=== PATIENT | male | born 1955 | race Caucasian/White ===

== ENCOUNTER 2016-05-20 09:39 | Inpatient (IN) | payer MEDICARE ==
--- NOTE | 2016-05-20 10:03 | ER Document Report ---
ED Medical Screen (RME) - General Stated Complaint: DIFFICULTY BREATHING Time seen by provider: 09:58 Mode of Arrival: Ambulatory Information source: Patient Notes: 60-year-old male presents to ED for shortness of breath. He states he had a LAP -BAND about 5 years ago and saw his LAP-BAND last month. He had both knees replaced 3 years ago. He states he has gained 35 pounds in the last 3 months. He states he has trouble breathing when he bends over. He's been short of breath since they changed his blood pressure medicine. He states he knows he takes blood pressure medicine he takes methadone he states he was diagnosed with diabetes but since she lost a lot of weight they took him off of that medicine. States he drinks every day 3-4 drinks mixed drinks. Does not smoke and does not use recreational drugs. Lumg clear, pulse 112, resp 20 states he can not lay flat as he get extremely sob I have greeted and performed a rapid initial assessment of this patient. A comprehensive ED assessment and evaluation of the patient, analysis of test results and completion of medical decision making process will be conducted by an additional ED providers. TRAVEL OUTSIDE OF THE [place] IN LAST 30 DAYS: No - Related Data Allergies/Adverse Reactions: No Known Allergies Allergy (Verified 03/12/14 11:52) Past Medical History - Past Medical History Cardiac Medical History: Reports: Hx Hypertension Endocrine Medical History: Reports: Hx Diabetes Mellitus Type 2 Past Surgical History: Reports: Hx Abdominal Surgery - EGD; lap band; abd hernia , Hx Orthopedic Surgery - bilat knee - Immunizations Hx Diphtheria, Pertussis, Tetanus Vaccination: Yes Physical Exam - Vital signs Vitals: Temp Pulse Resp BP Pulse Ox 97.6 F 112 H 20 142/89 H 95 05/20/16 09:56 05/20/16 09:56 05/20/16 09:56 05/20/16 09:56 05/20/16 09:56 Course - Vital Signs Vital signs: Temp Pulse Resp BP Pulse Ox 97.6 F 112 H 20 142/89 H 95 05/20/16 09:56 05/20/16 09:56 05/20/16 09:56 05/20/16 09:56 05/20/16 09:56
--- NOTE | 2016-05-20 14:58 | ER Document Report ---
ED General - General Chief Complaint: Shortness Of Breath Stated Complaint: DIFFICULTY BREATHING Mode of Arrival: Ambulatory Information source: Patient Notes: This is a 60-year-old male with a history of hypertension and diabetes and chronic back pain who presents for evaluation of shortness of breath. He states that for the past 2 or 3 months he has had increasing dyspnea on exertion and orthopnea. The orthopnea has become particularly worse in the past 2 or 3 days. Also 2 nights ago he had the sensation of pressure up into his neck and jaw. Today he denies any chest pain or jaw pain. He has had no fevers chills or systemic symptoms. He has had no cough and no sputum production. He does report lower extremity swelling and a 20 pound weight gain in the past few months. TRAVEL OUTSIDE OF THE [place] IN LAST 30 DAYS: No - Related Data Allergies/Adverse Reactions: No Known Allergies Allergy (Verified 05/20/16 10:01) Home Medications: Current Home Medications Alprazolam [Xanax 0.5 mg Tablet] 0.5 mg PO HSP PRN 05/20/16 [History] Amlodipine Besylate [Norvasc 10 mg Tablet] 10 mg PO DAILY 05/20/16 [History] Aspirin [Aspirin 81 mg Chewable Tablet] 81 mg PO DAILY 05/20/16 [History] Hydrochlorothiazide [Hydrodiuril 25 mg Tablet] 25 mg PO QAM 05/20/16 [History] Methadone HCl [Dolophine 10 Mg Tablet] 20 mg PO TIDP PRN 05/20/16 [History] Past Medical History - General Information source: Patient - Social History Smoking Status: Current Every Day Smoker Chew tobacco use (# tins/day): No Frequency of alcohol use: Heavy Family History: Reviewed & Not Pertinent Patient has suicidal ideation: No Patient has homicidal ideation: No - Past Medical History Cardiac Medical History: Reports: Hx Hypertension Endocrine Medical History: Reports: Hx Diabetes Mellitus Type 2 Renal/ Medical History: Denies: Hx Peritoneal Dialysis Past Surgical History: Reports: Hx Abdominal Surgery - EGD; lap band; abd hernia , Hx Orthopedic Surgery - bilat knee - Immunizations Hx Diphtheria, Pertussis, Tetanus Vaccination: Yes Review of Systems - Review of Systems Notes: REVIEW OF SYSTEMS: CONSTITUTIONAL : Denies fever, chills, or sweats. Denies recent illness. EENT: Denies eye, ear, throat, or mouth pain or symptoms. Denies nasal or sinus congestion. CARDIOVASCULAR: Denies chest pain. As per history of present illness RESPIRATORY: As per history of present illness GASTROINTESTINAL: Denies abdominal pain. Denies nausea, vomiting, or diarrhea. Denies constipation. GENITOURINARY: Denies difficulty urinating, painful urination, burning, frequency, or blood in urine. MUSCULOSKELETAL: Chronic back pain no acute issues SKIN: Denies rash or skin lesions. HEMATOLOGIC : Denies easy bruising or bleeding. LYMPHATIC: Denies swollen, enlarged glands. NEUROLOGICAL: Denies altered mental status or loss of consciousness. Denies headache. PSYCHIATRIC: Denies anxiety or stress or depression. ALL OTHER SYSTEMS REVIEWED AND NEGATIVE. Physical Exam - Vital signs Vitals: Temp Pulse Resp BP Pulse Ox 97.6 F 112 H 20 142/89 H 95 05/20/16 09:56 05/20/16 09:56 05/20/16 09:56 05/20/16 09:56 05/20/16 09:56 - Notes Notes: PHYSICAL EXAMINATION: GENERAL: Well-appearing, obese adult male and in no acute distress but somewhat anxious affect HEAD: Atraumatic, normocephalic. EYES: Pupils equal round and reactive to light, extraocular movements intact, sclera anicteric, conjunctiva are normal. ENT: nares patent, oropharynx clear without exudates. Moist mucous membranes. NECK: Normal range of motion, supple without lymphadenopathy LUNGS: bibasilar crackles L>R, good air movment bilaterally, no wheezes or rhonchi HEART: Tachycardic rate regular rhythm without murmurs ABDOMEN: Soft, nontender, normoactive bowel sounds. protuberant and obese. No guarding, no rebound. No masses appreciated. EXTREMITIES: Normal range of motion. Brawny discoloration to bilateral lower extremities. Trace to 1+ anterior tibial edema. NEUROLOGICAL: Cranial nerves grossly intact. Normal speech. No gross focal motor sensory deficits appreciated. PSYCH: Normal mood, normal affect. SKIN: Warm, Dry, normal turgor, no rashes or lesions noted. Course - Re-evaluation Re-evalutation: 05/20/16 19:38 Patient satting 88-91% on room air. He is placed on 2 L nasal cannula. His CT angiogram is negative for PE but he does have bibasilar infiltrates with a left sided pleural effusion. Will discuss with the hospitalist for admission for new onset CHF and bilateral pneumonia. IV antibiotics have been initiated. Patient is comfortable with plan. 05/20/16 19:41 Discussed with the hospitalist who will evaluate the patient in the ER. 2020: Pt is a primary patient of Dr. Gupta. Discussed with Dr. Gupta who will admit the pateint [facility]. - Vital Signs Vital signs: Temp Pulse Resp BP Pulse Ox 98.0 F 112 H 17 126/89 H 93 05/20/16 17:01 05/20/16 09:56 05/20/16 23:01 05/20/16 23:01 05/20/16 23:01 - Laboratory Result Diagrams: 05/20/16 15:37 05/20/16 15:37 Laboratory results interpreted by me: 05/20/16 05/20/16 05/20/16 15:37 15:37 15:37 RBC 4.03 L MCV 101 H MCH 34.9 H RDW 15.3 H D-Dimer Potassium 3.4 L Chloride 91 L Carbon Dioxide 32 H Direct Bilirubin 0.6 H NT-Pro-B Natriuret Pep 1720 H Urine Urobilinogen 05/20/16 05/20/16 15:37 16:47 RBC MCV MCH RDW D-Dimer 2.00 H Potassium Chloride Carbon Dioxide Direct Bilirubin NT-Pro-B Natriuret Pep Urine Urobilinogen 4.0 H - Diagnostic Test Radiology reviewed: Reports reviewed - CTA: No PE. Bilateral lower lobe airspace disease with L pleural effusion Discharge - Discharge Clinical Impression: Pneumonia Qualifiers: Pneumonia type: due to unspecified organism Laterality: bilateral Lung location : lower lobe of lung Qualified Code(s): J18.9 - Pneumonia, unspecified organism CHF (congestive heart failure) Qualifiers: Congestive heart failure type: unspecified congestive heart failure type Congestive heart failure chronicity: acute Qualified Code(s): I50.9 - Heart failure, unspecified Condition: Stable Disposition: ADMITTED INPATIENT Admitting Provider: Alonso Unit Admitted: [facility]
[2016-05-20 15:57] LABS: ABSOLUTE BASOPHILS # (AUTO) 0.1 10^3/uL (0.0-0.2); ABSOLUTE EOSINOPHILS # (AUTO) 0.1 10^3/uL (0.0-0.6); ABSOLUTE LYMPHOCYTES (AUTO) 1.2 10^3/uL (0.5-4.7); ABSOLUTE MONOCYTES (AUTO) 0.6 10^3/uL (0.1-1.4); ABSOLUTE NEUT (AUTO) 5.2 10^3/uL (1.7-8.2); BASOPHILS % (AUTO) 0.8 % (0-2); EOSINOPHILS % (AUTO) 1.6 % (0-6); HEMATOCRIT 40.7 % (37.9-51.0); HEMOGLOBIN 14.1 g/dL (13.5-17.0); HGB HCT DIFFERENCE 1.6; LYMPHOCYTES % (AUTO) 16.3 % (13-45); MEAN CORPUSCULAR HEMOGLOBIN 34.9 pg (27.0-33.4); MEAN CORPUSCULAR HGB CONC 34.5 g/dL (32.0-36.0); MEAN CORPUSCULAR VOLUME 101 fl (80-97); MONOCYTES % (AUTO) 8.2 % (3-13); RED BLOOD COUNT 4.03 10^6/uL (4.35-5.55); RED CELL DISTRIBUTION WIDTH 15.3 % (11.5-14.0); SEGMENTED NEUTROPHILS % (AUTO) 73.1 % (42-78); WHITE BLOOD COUNT 7.2 10^3/uL (4.0-10.5)
[2016-05-20 16:12] LABS: PROTHROMBIN TIME 13.8 SEC (11.4-15.4)
[2016-05-20 16:20] LABS: ALANINE AMINOTRANSFERASE 52 U/L (21-72); ALBUMIN 3.8 g/dL (3.5-5.0); ALKALINE PHOSPHATASE 113 U/L (38-126); ANION GAP 15 (5-19); ASPARTATE AMINO TRANSFERASE 56 U/L (17-59); BILIRUBIN,DIRECT 0.6 mg/dL (0.0-0.4); BILIRUBIN,TOTAL 1.2 mg/dL (0.2-1.3); BLOOD UREA NITROGEN 14 mg/dL (7-20); CALCIUM 9.5 mg/dL (8.4-10.2); CARBON DIOXIDE 32 mmol/L (22-30); CHLORIDE 91 mmol/L (98-107); CREATINE KINASE 63 U/L (55-170); CREATININE RESULT 0.86 mg/dL (0.52-1.25); GLUCOSE 99 mg/dL (75-110); POTASSIUM 3.4 mmol/L (3.6-5.0); SODIUM 137.8 mmol/L (137-145); TOTAL PROTEIN 8.2 g/dL (6.3-8.2)
[2016-05-20 16:32] LABS: CREATINE KINASE MB 1.68 ng/mL (<4.55)
[2016-05-20 16:34] LABS: TROPONIN I < 0.012 ng/mL
[2016-05-20 16:59] LABS: APPEARANCE,URINE CLEAR; BILIRUBIN,URINE NEGATIVE (NEGATIVE); GLUCOSE, URINE NEGATIVE (NEGATIVE); KETONES,URINE NEGATIVE (NEGATIVE); LEUKOCYTE ESTERASE,URINE NEGATIVE (NEGATIVE); NITRITE,URINE NEGATIVE (NEGATIVE); PROTEIN,URINE NEGATIVE (NEGATIVE); URINE SPECIFIC GRAVITY 1.009
--- NOTE | 2016-05-20 18:34 | EKG REPORT ---
SEVERITY:- ABNORMAL ECG - SINUS TACHYCARDIA WITH IRREGULAR RATE [id number] PACS CONSIDER ANTEROSEPTAL INFARCT BORDERLINE T ABNORMALITIES, ANTERIOR LEADS : Confirmed by: Adelso Ibarra MD 20-May-2016 18:33:02
[2016-05-20] MEDS ORDERED: CEFTRIAXONE 1 GM/D5W RTU 50 ML IV ONE (19:30)
[2016-05-20] MEDS ORDERED: AZITHROMYCIN INJ 500 MG VIAL IV ONE (19:31)
[2016-05-20] MEDS ORDERED: FUROSEMIDE INJ/PF 20 MG/2 ML SDV IV ONE ×2 (19:31→19:37)
[2016-05-21] MEDS ORDERED: INFLUENZA ADLT QUAD (36MOS+) 2016-17 VAC 0.5 ML SYR IM PRN (01:36)
[2016-05-21 08:00] LABS: ABSOLUTE BASOPHILS # (AUTO) 0.1 10^3/uL (0.0-0.2); ABSOLUTE EOSINOPHILS # (AUTO) 0.3 10^3/uL (0.0-0.6); ABSOLUTE LYMPHOCYTES (AUTO) 1.3 10^3/uL (0.5-4.7); ABSOLUTE MONOCYTES (AUTO) 0.5 10^3/uL (0.1-1.4); BASOPHILS % (AUTO) 0.9 % (0-2); HEMATOCRIT 39.6 % (37.9-51.0); HEMOGLOBIN 13.4 g/dL (13.5-17.0); HGB HCT DIFFERENCE 0.6; LYMPHOCYTES % (AUTO) 17.9 % (13-45); MEAN CORPUSCULAR HEMOGLOBIN 34.5 pg (27.0-33.4); MEAN CORPUSCULAR HGB CONC 33.9 g/dL (32.0-36.0); MEAN CORPUSCULAR VOLUME 102 fl (80-97); MONOCYTES % (AUTO) 7.1 % (3-13); RED BLOOD COUNT 3.89 10^6/uL (4.35-5.55); RED CELL DISTRIBUTION WIDTH 15.1 % (11.5-14.0); SEGMENTED NEUTROPHILS % (AUTO) 70.1 % (42-78); WHITE BLOOD COUNT 7.2 10^3/uL (4.0-10.5)
[2016-05-21 08:22] LABS: ALANINE AMINOTRANSFERASE 46 U/L (21-72); ALBUMIN 3.6 g/dL (3.5-5.0); ALKALINE PHOSPHATASE 103 U/L (38-126); ANION GAP 16 (5-19); ASPARTATE AMINO TRANSFERASE 55 U/L (17-59); BILIRUBIN,DIRECT 0.6 mg/dL (0.0-0.4); BLOOD UREA NITROGEN 13 mg/dL (7-20); CALCIUM 9.6 mg/dL (8.4-10.2); CARBON DIOXIDE 32 mmol/L (22-30); CHLORIDE 92 mmol/L (98-107); CREATININE RESULT 1.11 mg/dL (0.52-1.25); GLUCOSE 109 mg/dL (75-110); POTASSIUM 3.6 mmol/L (3.6-5.0); SODIUM 139.5 mmol/L (137-145); TOTAL PROTEIN 7.6 g/dL (6.3-8.2)
[2016-05-21] MEDS ORDERED: ACETAMINOPHEN 325 MG TABLET PO PRN (08:29)
[2016-05-21] MEDS ORDERED: ALPRAZOLAM 0.5 MG TABLET PO PRN (08:29)
[2016-05-21] MEDS ORDERED: GUAIFENESIN SYRP 200 MG/10 ML UDC PO PRN (08:29)
[2016-05-21] MEDS ORDERED: ENOXAPARIN SODIUM INJ 40 MG/0.4 ML DISP.SYRIN SUBCUT ONE (09:00)
[2016-05-21] MEDS: AMLODIPINE BESYLATE 10 MG TABLET PO SCH (09:16)
[2016-05-21] MEDS: METHADONE HCL 10 MG TABLET PO SCH ×3 (09:16→18:00)
[2016-05-21] MEDS: FUROSEMIDE 40 MG TABLET PO SCH (09:16)
[2016-05-21] MEDS: ASPIRIN 81 MG TABLET, CHEWABLE PO SCH (09:16)
[2016-05-21] MEDS: CEFTRIAXONE 1 GM/D5W RTU 50 ML IV SCH (09:17)
[2016-05-21] MEDS: LANSOPRAZOLE 30 MG TAB.RAP.DR PO SCH (09:17)
[2016-05-21] MEDS: LEVOFLOXACIN 750 MG/D5W RTU 150 ML IV SCH (09:18)
[2016-05-21 11:15] LABS: PARTIAL THROMBOPLASTIN TIME 31.9 SEC (23.5-35.8); PROTHROMBIN TIME 13.8 SEC (11.4-15.4)
--- NOTE | 2016-05-21 12:26 | XCELERA REPORT ---
[address] [address] Transthoracic Echocardiogram Report Name: CARLOS CARDONA Age: 60 yrs Gender: Male : 1955 Patient Status: Inpatient Patient Location: 3S\S\330\S\A Study Date: 05/21/2016 10:20 AM Height: 70 in Weight: 274 lb BSA: 2.4 m2 Procedure: A complete two-dimensional transthoracic echocardiogram was performed (2D, M-mode, spectral and color flow Doppler). The study was technically difficult with many images being suboptimal in quality. Reason For Study: new onset CHF Ordering Physician: ERNA SCHUSTER Performed By: Jelena Brady Interpretation Summary The study was technically difficult with many images being suboptimal in quality. Due to the poor quality of the echocardiogram, an assessment of left ventricular ejection fraction cannot be made. Best estimate is 40. Consider additional methods to assess LVEF such as MUGA scan, CTA heart, cardiac MRI, CEFERINO, etc. if clinically indicated. There is borderline concentric left ventricular hypertrophy. The left ventricle is grossly normal size. Doppler measurements suggest pseudonormalized left ventricular relaxation, which is associated with grade II/IV or mild to moderate diastolic dysfunction Regional wall motion abnormalities cannot be excluded due to limited visualization. The right ventricle is moderately dilated. Right ventricular function cannot be assessed due to poor image quality. The right atrium is mildly dilated. The left atrium is moderately dilated. There is no mitral valve stenosis. There is a trace amount of mitral regurgitation There is no aortic valve stenosis No aortic regurgitation is present. There is a trace or physiologic amount of tricuspid regurgitation Tricuspid regurgitation jet envelope not well defined to measure RV systolic pressure accurately. The aortic root is not well visualized. The inferior vena cava was not well visualized There is no pericardial effusion. MMode/2D Measurements \T\ Calculations RVDd: 3.4 cm LVIDd: 4.8 cm FS: 15.6 % Ao root diam: 2.9 cm IVSd: 1.3 cm LVIDs: 4.0 cm EDV(Teich): 107.2 ml LVPWd: 0.92 cmESV(Teich): 72.0 ml Ao root area: 6.6 cm2 EF(Teich): 32.8 % LA dimension: 4.4 cm LVOT diam: 2.5 cm LVOT area: 4.9 cm2 Doppler Measurements \T\ Calculations MV E max priyanka: MV P1/2t max priyanka: Ao V2 max: LV V1 max P.5 cm/sec 114.0 cm/sec 149.7 cm/sec 6.4 mmHg MV A max priyanka: MV P1/2t: 39.2 msec Ao max PG: LV V1 max: 97.7 cm/sec MVA(P1/2t): 5.6 cm2 9.0 mmHg 126.4 cm/sec MV E/A: 1.2 MV dec slope: KHRIS(V,D): 4.1 cm2 852.2 cm/sec2 PA V2 max: TR max priyanka: 76.0 cm/sec 229.1 cm/sec PA max PG: TR max P.0 mmHg 2.3 mmHg Left Ventricle The left ventricle is grossly normal size. There is borderline concentric left ventricular hypertrophy. Due to the poor quality of the echocardiogram, an assessment of left ventricular ejection fraction cannot be made. Best estimate is 40. Consider additional methods to assess LVEF such as MUGA scan, CTA heart, cardiac MRI, CEFERINO, etc. if clinically indicated. Doppler measurements suggest pseudonormalized left ventricular relaxation, which is associated with grade II/IV or mild to moderate diastolic dysfunction. Regional wall motion abnormalities cannot be excluded due to limited visualization. Right Ventricle The right ventricle is moderately dilated. There is normal right ventricular wall thickness. Right ventricular function cannot be assessed due to poor image quality. Atria The right atrium is mildly dilated. The left atrium is moderately dilated. Interarterial septum not well visualized and not well dopplered. Cannot comment on ASD/PFO presence. Mitral Valve The mitral valve leaflets are sclerotic, but show no functional abnormalities. There is no mitral valve stenosis. There is a trace amount of mitral regurgitation. Aortic Valve The aortic valve is not well visualized secondary to technical limitations. There is no aortic valve stenosis. No aortic regurgitation is present. Tricuspid Valve The tricuspid valve is not well visualized secondary to technical limitations. There is no tricuspid stenosis. There is a trace or physiologic amount of tricuspid regurgitation. Tricuspid regurgitation jet envelope not well defined to measure RV systolic pressure accurately. Pulmonic Valve The pulmonic valve is not well visualized. Great Vessels The aortic root is not well visualized. The inferior vena cava was not well visualized. Effusions There is no pericardial effusion. : ERNA SCHUSTER > Maximilian Castillo
--- NOTE | 2016-05-21 20:06 | PDOC H&P ---
History of Present Illness Admission Date/PCP: 05/20/16 20:05 ERNA SCHUSTER Patient complains of: Worsening shortness of breath History of Present Illness: CARLOS CARDONA is a 60 year old male known to my practice who presented to the Ed with complaint of worsening shortness of breath. Patient reported associated intermittent chest pain, increasing exertional shortness of breath over the last couple of months. Patient reported excessive weight gain recently. There is described associated orthopnea but denied PND. No palpitation. There is some improvement in leg selling but noticed worsening firmness around his abdomen. Patient denied any associated fever or chills. No coughing or sputum production. Patient do have history of diabetes mellitus type 2, HTN, Chronic pain syndrome due to degenerative disc disease and knee joint arthritis. He did admit to significant alcohol ingestion. His initial evaluation in the ED did revealed bibasilar air space disease process with elevated NT Pro-BNP level. In view of his symptoms presentation, physical examination and laboratory findings, he was advised hospitalization for further evaluation and management. Past Medical History Cardiac Medical History: Reports: Hypertension Endocrine Medical History: Reports: Diabetes Mellitus Type 2 Psychiatric Medical History: Reports: Depression Past Surgical History Past Surgical History: Reports: Orthopedic Surgery - bilat knee Social History Smoking Status: Former Smoker Frequency of Alcohol Use: Heavy Hx Recreational Drug Use: No Hx Prescription Drug Abuse: No Family History Family History: Reviewed & Not Pertinent Parental Family History Reviewed: Yes Children Family History Reviewed: Yes Sibling(s) Family History Reviewed.: Yes Medication/Allergy Home Medications: Amlodipine Besylate [Norvasc 10 mg Tablet] 10 mg PO DAILY 05/20/16 Aspirin [Aspirin 81 mg Chewable Tablet] 81 mg PO DAILY 05/20/16 Hydrochlorothiazide [Hydrodiuril 25 mg Tablet] 25 mg PO QAM 05/20/16 Methadone HCl [Dolophine 10 Mg Tablet] 20 mg PO TIDP PRN 05/20/16 Alprazolam [Xanax] 1 mg PO QHS 05/21/16 Dextroamphetamine/Amphetamine [Adderall 20 mg Tablet] 20 mg PO TID 05/21/16 Allergies/Adverse Reactions: No Known Allergies Allergy (Verified 05/20/16 10:01) Review of Systems Constitutional: ABSENT: chills, fever(s), headache(s), weight gain, weight loss Eyes: ABSENT: visual disturbances Ears: ABSENT: hearing changes Nose, Mouth, and Throat: ABSENT: as per HPI, headache(s), mouth pain, sore throat, vertigo, other Cardiovascular: PRESENT: chest pain, dyspnea on exertion, edema, orthropnea. ABSENT: as per HPI, palpitations, other Respiratory: PRESENT: dyspnea. ABSENT: as per HPI, cough, hemoptysis, sputum, other Gastrointestinal: ABSENT: abdominal pain, constipation, diarrhea, hematemesis, hematochezia, nausea, vomiting Genitourinary: ABSENT: dysuria, hematuria Musculoskeletal: PRESENT: back pain - related to his chronic pain syndrome from degenerative disc disease process, deformity - related to arthritis joint involvement, joint swelling - chronic lower extremities edema Integumentary: ABSENT: rash, wounds Neurological: ABSENT: abnormal gait, abnormal speech, confusion, dizziness, focal weakness, syncope Psychiatric: ABSENT: anxiety, depression, homidical ideation, suicidal ideation Hematologic/Lymphatic: ABSENT: easy bleeding, easy bruising, lymphadenopathy Physical Exam Vital Signs: Temp Pulse Resp BP Pulse Ox 97.7 F 83 20 118/76 93 05/21/16 15:53 05/21/16 15:53 05/21/16 15:53 05/21/16 15:53 05/21/16 15:53 Intake & Output 05/20/16 05/21/16 05/22/16 06:59 06:59 06:59 Intake Total 914 Output Total 3225 1675 Balance -3225 -761 Weight 124.6 kg General appearance: PRESENT: no acute distress, cooperative, obese Head exam: PRESENT: atraumatic, normocephalic Eye exam: PRESENT: conjunctiva pink, EOMI, PERRLA. ABSENT: scleral icterus Mouth exam: PRESENT: moist, tongue midline Throat exam: ABSENT: post pharyngeal erythema, tonsillar erythema, tonsillar exudate, tonsillogmegaly, other Neck exam: PRESENT: full ROM. ABSENT: carotid bruit, JVD, lymphadenopathy, thyromegaly Respiratory exam: PRESENT: crackles - scattered at lung bases, decreased breath sounds - bilaterally in lower zones Cardiovascular exam: PRESENT: RRR. ABSENT: diastolic murmur, rubs, systolic murmur Vascular exam: PRESENT: pallor GI/Abdominal exam: PRESENT: normal bowel sounds, soft, other - abdominal wall pitting edema. ABSENT: distended, guarding, mass, organolmegaly, rebound, tenderness Rectal exam: PRESENT: deferred Gentrourinary exam: ABSENT: ecchymosis, erythema, lacerations, lesions, scrotal swelling, testicular tenderness, urethral discharge, indwelling catheter, other Extremities exam: PRESENT: full ROM Musculoskeletal exam: PRESENT: ambulatory, deformity Neurological exam: PRESENT: alert, awake, oriented to person, oriented to place , oriented to time, oriented to situation, CN II-XII grossly intact. ABSENT: motor sensory deficit Psychiatric exam: PRESENT: appropriate affect, normal mood. ABSENT: homicidal ideation, suicidal ideation Skin exam: PRESENT: dry, intact, warm. ABSENT: cyanosis, rash Results Laboratory Results: 05/21/16 07:18 05/21/16 07:18 05/21/16 05/21/16 07:18 07:18 WBC 7.2 RBC 3.89 L Hgb 13.4 L Hct 39.6 MCV 102 H MCH 34.5 H MCHC 33.9 RDW 15.1 H Plt Count 215 Seg Neutrophils % 70.1 Lymphocytes % 17.9 Monocytes % 7.1 Eosinophils % 4.0 Basophils % 0.9 Absolute Neutrophils 5.0 Absolute Lymphocytes 1.3 Absolute Monocytes 0.5 Absolute Eosinophils 0.3 Absolute Basophils 0.1 Sodium 139.5 Potassium 3.6 Chloride 92 L Carbon Dioxide 32 H Anion Gap 16 BUN 13 Creatinine 1.11 Est GFR ( Amer) > 60 Est GFR (Non-Af Amer) > 60 Glucose 109 Calcium 9.6 Total Bilirubin 1.0 AST 55 ALT 46 Alkaline Phosphatase 103 Total Protein 7.6 Albumin 3.6 Impressions: Chest X-Ray 05/20/16 10:06 IMPRESSION: Patchy left basilar infiltrate/atelectatic change with likely trace pleural fluid. Chest/Abdomen CTA 05/20/16 17:09 IMPRESSION: Bilateral airspace disease in the lower lobes and lingula with a small left pleural effusion. NO PULMONARY EMBOLI. Assessment & Plan - Diagnosis (1) Community acquired pneumonia Is this a current diagnosis for this admission?: YesPlan: See admitting physician orders. (2) Acute systolic CHF (congestive heart failure), NYHA class 2 Is this a current diagnosis for this admission?: YesPlan: See admitting physician orders. (3) Diabetes mellitus type 2 in obese Is this a current diagnosis for this admission?: YesPlan: See admitting physician orders. (4) HTN (hypertension) Qualifiers: Hypertension type: essential hypertension Qualified Code(s): I10 - Essential (primary) hypertension Is this a current diagnosis for this admission?: YesPlan: See admitting physician orders. (5) HLD (hyperlipidemia) Qualifiers: Hyperlipidemia type: pure hypercholesterolemia Qualified Code(s): E78.00 - Pure hypercholesterolemia, unspecified; E78.0 - Pure hypercholesterolemia Is this a current diagnosis for this admission?: YesPlan: See admitting physician orders. (6) Chronic prescription opiate use Is this a current diagnosis for this admission?: YesPlan: See admitting physician orders. - Time Time Spent: 50 to 70 Minutes Medications reviewed and adjusted accordingly: Yes Anticipated discharge: Home Within: Other - Inpatient Certification Medical Necessity: Need Close Monitoring Due to Risk of Patient Decompensation, Need For Continuous Telemetry Monitoring, Need for Pain Control, Need for IV Antibiotics, Risk of Complication if Not Cared For in Hospital Post Hospital Care: D/C Welfare Eligibility Interviewer Documentation - Plan Summary Plan Summary: See admitting physician orders.
[2016-05-21] MEDS: ALPRAZOLAM 0.5 MG TABLET PO SCH (21:56)
[2016-05-22] MEDS ORDERED: METOPROLOL TARTRATE PF/INJ 5 MG/5 ML SDV IV ONE ×2 (03:54→04:30)
[2016-05-22 04:25] LABS: ABSOLUTE BASOPHILS # (AUTO) 0.1 10^3/uL (0.0-0.2); ABSOLUTE EOSINOPHILS # (AUTO) 0.3 10^3/uL (0.0-0.6); ABSOLUTE LYMPHOCYTES (AUTO) 1.3 10^3/uL (0.5-4.7); ABSOLUTE MONOCYTES (AUTO) 0.6 10^3/uL (0.1-1.4); ABSOLUTE NEUT (AUTO) 4.5 10^3/uL (1.7-8.2); BASOPHILS % (AUTO) 0.8 % (0-2); EOSINOPHILS % (AUTO) 4.9 % (0-6); HEMATOCRIT 40.2 % (37.9-51.0); HEMOGLOBIN 13.7 g/dL (13.5-17.0); HGB HCT DIFFERENCE 0.9; MEAN CORPUSCULAR HEMOGLOBIN 34.8 pg (27.0-33.4); MEAN CORPUSCULAR HGB CONC 34.1 g/dL (32.0-36.0); MEAN CORPUSCULAR VOLUME 102 fl (80-97); MONOCYTES % (AUTO) 9.1 % (3-13); RED BLOOD COUNT 3.95 10^6/uL (4.35-5.55); RED CELL DISTRIBUTION WIDTH 14.8 % (11.5-14.0); SEGMENTED NEUTROPHILS % (AUTO) 66.2 % (42-78); WHITE BLOOD COUNT 6.9 10^3/uL (4.0-10.5)
[2016-05-22 04:30] LABS: PROTHROMBIN TIME 13.4 SEC (11.4-15.4)
[2016-05-22] MEDS ORDERED: LABETALOL HCL INJ 20 MG/4 ML DISP.SYRIN IV ONE (04:30)
[2016-05-22 04:33] LABS: ALANINE AMINOTRANSFERASE 45 U/L (21-72); ALBUMIN 3.6 g/dL (3.5-5.0); ALKALINE PHOSPHATASE 92 U/L (38-126); ANION GAP 15 (5-19); ASPARTATE AMINO TRANSFERASE 66 U/L (17-59); BILIRUBIN,DIRECT 0.6 mg/dL (0.0-0.4); BILIRUBIN,TOTAL 0.9 mg/dL (0.2-1.3); BLOOD UREA NITROGEN 15 mg/dL (7-20); CALCIUM 9.4 mg/dL (8.4-10.2); CARBON DIOXIDE 33 mmol/L (22-30); CHLORIDE 93 mmol/L (98-107); GLUCOSE 99 mg/dL (75-110); POTASSIUM 3.6 mmol/L (3.6-5.0); SODIUM 140.7 mmol/L (137-145); TOTAL PROTEIN 7.7 g/dL (6.3-8.2)
[2016-05-22] MEDS: LANSOPRAZOLE 30 MG TAB.RAP.DR PO SCH (06:09)
--- NOTE | 2016-05-22 08:27 | EKG REPORT ---
SEVERITY:- ABNORMAL ECG - ATRIAL FIBRILLATION, V-RATE 117-155 CONSIDER ANTEROSEPTAL INFARCT BORDERLINE T ABNORMALITIES, ANTERIOR LEADS : Confirmed by: Adelso Ibarra MD 22-May-2016 08:26:41
[2016-05-22] MEDS: FUROSEMIDE 40 MG TABLET PO SCH (09:36)
[2016-05-22] MEDS: ENOXAPARIN SODIUM INJ 40 MG/0.4 ML DISP.SYRIN SUBCUT SCH (09:37)
[2016-05-22] MEDS: ASPIRIN 81 MG TABLET, CHEWABLE PO SCH (09:38)
[2016-05-22] MEDS: METOPROLOL TARTRATE 25 MG TABLET PO SCH ×2 (09:38→21:09)
[2016-05-22] MEDS: AMLODIPINE BESYLATE 10 MG TABLET PO SCH (09:38)
[2016-05-22] MEDS: METHADONE HCL 10 MG TABLET PO SCH ×3 (09:38→17:26)
[2016-05-22] MEDS: CEFTRIAXONE 1 GM/D5W RTU 50 ML IV SCH (09:39)
[2016-05-22] MEDS: LEVOFLOXACIN 750 MG/D5W RTU 150 ML IV SCH (09:40)
[2016-05-22] MEDS ORDERED: (PENDING PHARMACY ID) (Dextroamphetamine/Amphetamine [Adderall 20 Mg Tablet] 20 MG) PO SCH (10:00)
--- NOTE | 2016-05-22 19:24 | PDOC PROGRESS REPORT ---
Subjective Progress Note for:: 05/22/16 Subjective:: Patient had episode of atrial fibrillation since last clinical evaluation that resolve with administration of IV Lopressor and started on oral therapy of same. Patient reported history of obstructive sleep apnea and usage of CPAP machine which he has been noncompliant for several years. He denied any ongoing chest pain or SOB. No fever or chills. No abdominal pain. He remain on IV Levofloxacin and ceftriaxone coverage. Physical Exam Vital Signs: Temp Pulse Resp BP Pulse Ox 97.6 F 110 H 18 133/94 H 95 05/22/16 07:10 05/22/16 07:10 05/22/16 07:10 05/22/16 07:10 05/22/16 07:10 Intake & Output 05/21/16 05/22/16 05/23/16 06:59 06:59 06:59 Intake Total 1514 Output Total 3225 2125 Balance -3225 -611 Weight 124.6 kg 124.2 kg General appearance: PRESENT: no acute distress, cooperative, obese Head exam: PRESENT: atraumatic, normocephalic Eye exam: PRESENT: conjunctiva pink, EOMI, PERRLA. ABSENT: scleral icterus Neck exam: PRESENT: full ROM. ABSENT: carotid bruit, JVD, lymphadenopathy, thyromegaly Respiratory exam: PRESENT: clear to auscultation zhanna Cardiovascular exam: PRESENT: RRR. ABSENT: diastolic murmur, rubs, systolic murmur GI/Abdominal exam: PRESENT: normal bowel sounds, soft. ABSENT: distended, guarding, mass, organolmegaly, rebound, tenderness Extremities exam: PRESENT: pedal edema - comparative improvement. Musculoskeletal exam: PRESENT: deformity - related to joint involvement with arthritis Neurological exam: PRESENT: alert, awake, oriented to person, oriented to place , oriented to time, oriented to situation, CN II-XII grossly intact. ABSENT: motor sensory deficit Psychiatric exam: PRESENT: appropriate affect, normal mood. ABSENT: homicidal ideation, suicidal ideation Skin exam: PRESENT: dry, intact, warm. ABSENT: cyanosis, rash Results Laboratory Results: 05/22/16 04:12 05/22/16 04:12 05/22/16 05/22/16 04:12 04:12 WBC 6.9 RBC 3.95 L Hgb 13.7 Hct 40.2 MCV 102 H MCH 34.8 H MCHC 34.1 RDW 14.8 H Plt Count 195 Seg Neutrophils % 66.2 Lymphocytes % 19.0 Monocytes % 9.1 Eosinophils % 4.9 Basophils % 0.8 Absolute Neutrophils 4.5 Absolute Lymphocytes 1.3 Absolute Monocytes 0.6 Absolute Eosinophils 0.3 Absolute Basophils 0.1 Sodium 140.7 Potassium 3.6 Chloride 93 L Carbon Dioxide 33 H Anion Gap 15 BUN 15 Creatinine 1.00 Est GFR ( Amer) > 60 Est GFR (Non-Af Amer) > 60 Glucose 99 Calcium 9.4 Total Bilirubin 0.9 AST 66 H ALT 45 Alkaline Phosphatase 92 Total Protein 7.7 Albumin 3.6 Impressions: Chest X-Ray 05/20/16 10:06 IMPRESSION: Patchy left basilar infiltrate/atelectatic change with likely trace pleural fluid. Chest/Abdomen CTA 05/20/16 17:09 IMPRESSION: Bilateral airspace disease in the lower lobes and lingula with a small left pleural effusion. NO PULMONARY EMBOLI. Assessment & Plan - Diagnosis (1) Community acquired pneumonia Is this a current diagnosis for this admission?: YesPlan: Continue IV Levofloxacin and Rocephin coverage. Follow up on blood culture. See admitting physician orders. (2) Acute systolic CHF (congestive heart failure), NYHA class 2 Is this a current diagnosis for this admission?: YesPlan: Reviewed and discussed his TTE findings. See admitting physician orders. (3) Diabetes mellitus type 2 in obese Is this a current diagnosis for this admission?: YesPlan: See admitting physician orders. (4) HTN (hypertension) Qualifiers: Hypertension type: essential hypertension Qualified Code(s): I10 - Essential (primary) hypertension Is this a current diagnosis for this admission?: YesPlan: See admitting physician orders. (5) HLD (hyperlipidemia) Qualifiers: Hyperlipidemia type: pure hypercholesterolemia Qualified Code(s): E78.00 - Pure hypercholesterolemia, unspecified; E78.0 - Pure hypercholesterolemia Is this a current diagnosis for this admission?: YesPlan: See admitting physician orders. (6) Chronic prescription opiate use Is this a current diagnosis for this admission?: YesPlan: See admitting physician orders. (7) OLE (obstructive sleep apnea) Is this a current diagnosis for this admission?: YesPlan: I will start patient on CPAP support while on admission. I had extensive discussion with him regarding possible contribution of his OLE to his cardiac condition. We will arrange for sleep study on outpatient basis. (8) Paroxysmal atrial fibrillation Is this a current diagnosis for this admission?: YesPlan: It is possible that patient's A.Fib has been present prior to admission but related to his OLE. He will continue with beta kayla Metoprolol therapy with plan to optimize his therapy. - Time Time Spent with patient: 25-34 minutes Medications reviewed and adjusted accordingly: Yes Anticipated discharge: Home Within: Other - Inpatient Certification Medical Necessity: Need Close Monitoring Due to Risk of Patient Decompensation, Need For IV Fluids, Need For Continuous Telemetry Monitoring, Need for IV Antibiotics, Risk of Complication if Not Cared For in Hospital Post Hospital Care: D/C Livestock Sales Representative Documentation - Plan Summary Plan Summary: See attending physician orders.
[2016-05-22] MEDS: ALPRAZOLAM 0.5 MG TABLET PO SCH (21:07)
[2016-05-23] MEDS: LANSOPRAZOLE 30 MG TAB.RAP.DR PO SCH (05:15)
[2016-05-23 06:45] LABS: HEPATITIS C VIRUS AB >11.0 s/co ratio (0.0-0.9)
[2016-05-23] MEDS: ENOXAPARIN SODIUM INJ 40 MG/0.4 ML DISP.SYRIN SUBCUT SCH (09:47)
[2016-05-23] MEDS: METHADONE HCL 10 MG TABLET PO SCH ×3 (09:48→17:49)
[2016-05-23] MEDS: METOPROLOL TARTRATE 25 MG TABLET PO SCH ×2 (09:49→22:05)
[2016-05-23] MEDS: AMLODIPINE BESYLATE 10 MG TABLET PO SCH (09:50)
[2016-05-23] MEDS: CEFTRIAXONE 1 GM/D5W RTU 50 ML IV SCH (09:50)
[2016-05-23] MEDS: ASPIRIN 81 MG TABLET, CHEWABLE PO SCH (09:50)
[2016-05-23] MEDS: FUROSEMIDE 40 MG TABLET PO SCH (09:50)
[2016-05-23] MEDS: LEVOFLOXACIN 750 MG/D5W RTU 150 ML IV SCH (09:51)
--- NOTE | 2016-05-23 19:08 | PDOC PROGRESS REPORT ---
Subjective Progress Note for:: 05/23/16 Subjective:: Patient reported some improvement in his breathing. No fever or chills. No abdominal pain. He remain on IV Levofloxacin and ceftriaxone coverage. He reported prior treatment for Hep C infection and declared cure although his Hep C antibody will remain positive. Physical Exam Vital Signs: Temp Pulse Resp BP Pulse Ox 97.5 F 65 22 H 115/77 94 05/23/16 15:15 05/23/16 15:15 05/23/16 15:15 05/23/16 15:15 05/23/16 15:15 Intake & Output 05/22/16 05/23/16 05/24/16 06:59 06:59 06:59 Intake Total 1514 2020 914 Output Total 2125 2100 2350 Balance - Weight 124.2 kg Physical Exam: General appearance: PRESENT: no acute distress, cooperative, obese Head exam: PRESENT: atraumatic, normocephalic Eye exam: PRESENT: conjunctiva pink, EOMI, PERRLA. ABSENT: scleral icterus Neck exam: PRESENT: full ROM. ABSENT: carotid bruit, JVD, lymphadenopathy, thyromegaly Respiratory exam: PRESENT: clear to auscultation zhanna Cardiovascular exam: PRESENT: RRR. ABSENT: diastolic murmur, rubs, systolic murmur GI/Abdominal exam: PRESENT: normal bowel sounds, soft. ABSENT: distended, guarding, mass, organomegaly, rebound, tenderness Extremities exam: PRESENT: pedal edema - comparative improvement. Musculoskeletal exam: PRESENT: deformity - related to joint involvement with arthritis. Neurological exam: PRESENT: alert, awake, oriented to person, oriented to place , oriented to time, oriented to situation, CN II-XII grossly intact. ABSENT: motor sensory deficit Psychiatric exam: PRESENT: appropriate affect, normal mood. ABSENT: homicidal ideation, suicidal ideation Skin exam: PRESENT: dry, intact, warm. ABSENT: cyanosis, rash Results Laboratory Results: 05/22/16 04:12 05/22/16 04:12 Impressions: Chest X-Ray 05/20/16 10:06 IMPRESSION: Patchy left basilar infiltrate/atelectatic change with likely trace pleural fluid. Chest/Abdomen CTA 05/20/16 17:09 IMPRESSION: Bilateral airspace disease in the lower lobes and lingula with a small left pleural effusion. NO PULMONARY EMBOLI. Assessment & Plan - Diagnosis (1) Community acquired pneumonia Is this a current diagnosis for this admission?: YesPlan: Continue IV Levofloxacin and Rocephin coverage. Consider transition to oral Levoflaxacin and possible discharge home very soon. Follow up on blood culture. See admitting physician orders. (2) Acute systolic CHF (congestive heart failure), NYHA class 2 Is this a current diagnosis for this admission?: YesPlan: See admitting physician orders. Emphasized compliance with CPAP machine usage. (3) Diabetes mellitus type 2 in obese Is this a current diagnosis for this admission?: YesPlan: See attending physician orders. (4) HTN (hypertension) Qualifiers: Hypertension type: essential hypertension Qualified Code(s): I10 - Essential (primary) hypertension Is this a current diagnosis for this admission?: YesPlan: See attending physician orders. (5) HLD (hyperlipidemia) Qualifiers: Hyperlipidemia type: pure hypercholesterolemia Qualified Code(s): E78.00 - Pure hypercholesterolemia, unspecified; E78.0 - Pure hypercholesterolemia Is this a current diagnosis for this admission?: YesPlan: See attending physician orders. (6) Chronic prescription opiate use Is this a current diagnosis for this admission?: YesPlan: See attending physician orders. (7) OLE (obstructive sleep apnea) Is this a current diagnosis for this admission?: YesPlan: Emphasized compliance with CPAP usage. Patient will need sleep study on outpatient basis upon discharge. (8) Paroxysmal atrial fibrillation Is this a current diagnosis for this admission?: YesPlan: See attending physician orders. - Time Time Spent with patient: 25-34 minutes Medications reviewed and adjusted accordingly: Yes Anticipated discharge: Home Within: within 48 hours - Inpatient Certification Based on my medical assessment, after consideration of the patient's comorbidities, presenting symptoms, or acuity I expect that the services needed warrant INPATIENT care.: Yes I certify that my determination is in accordance with my understanding of Medicare's requirements for reasonable and necessary INPATIENT services [42 CFR 412.3e].: Yes Medical Necessity: Need Close Monitoring Due to Risk of Patient Decompensation, Need For Continuous Telemetry Monitoring, Need for Pain Control, Need for IV Antibiotics, Risk of Complication if Not Cared For in Hospital Post Hospital Care: D/C Associate Automation Engineer Documentation - Plan Summary Plan Summary: See attending physician orders.
[2016-05-23] MEDS ORDERED: FLUTICASONE NASAL SPRAY 50 MCG/SPRY 120 SPRAY/16 GM NASL ONE (21:00)
[2016-05-23] MEDS: ALPRAZOLAM 0.5 MG TABLET PO SCH (22:06)
[2016-05-24] MEDS: LANSOPRAZOLE 30 MG TAB.RAP.DR PO SCH (05:28)
[2016-05-24] MEDS ORDERED: LEVOFLOXACIN 750 MG TABLET PO SCH (10:00)
[2016-05-24] MEDS ORDERED: FLUTICASONE NASAL SPRAY 50 MCG/SPRY 120 SPRAY/16 GM NASL SCH (10:00)
[2016-05-24] MEDS: CEFTRIAXONE 1 GM/D5W RTU 50 ML IV SCH (12:07)
[2016-05-24] MEDS: ASPIRIN 81 MG TABLET, CHEWABLE PO SCH (12:08)
[2016-05-24] MEDS: METOPROLOL TARTRATE 25 MG TABLET PO SCH (12:08)
[2016-05-24] MEDS: FUROSEMIDE 40 MG TABLET PO SCH (12:09)
[2016-05-24] MEDS: AMLODIPINE BESYLATE 10 MG TABLET PO SCH (12:09)
[2016-05-24] MEDS: METHADONE HCL 10 MG TABLET PO SCH ×3 (12:09→17:23)
[2016-05-24] MEDS: ENOXAPARIN SODIUM INJ 40 MG/0.4 ML DISP.SYRIN SUBCUT SCH (12:13)
--- NOTE | 2016-05-24 18:01 | PDOC DISCHARGE SUMMARY ---
General - Admit/Disc Date/PCP Admission Date/Primary Care Provider: 05/20/16 20:05 ERNA SCHUSTER Discharge Date: 05/24/16 - Discharge Diagnosis (1) Community acquired pneumonia Is this a current diagnosis for this admission?: Yes (2) Acute systolic CHF (congestive heart failure), NYHA class 2 Is this a current diagnosis for this admission?: Yes (3) Diabetes mellitus type 2 in obese Is this a current diagnosis for this admission?: Yes (4) HTN (hypertension) Is this a current diagnosis for this admission?: Yes (5) HLD (hyperlipidemia) Is this a current diagnosis for this admission?: Yes (6) Chronic prescription opiate use Is this a current diagnosis for this admission?: Yes (7) OLE (obstructive sleep apnea) Is this a current diagnosis for this admission?: Yes (8) Paroxysmal atrial fibrillation Is this a current diagnosis for this admission?: Yes - Additional Information Discharge Diet: Cardiac Discharge Activity: Activity As Tolerated, Balance Activity w/Rest, Weigh Daily Home Medications: Amlodipine Besylate [Norvasc 10 mg Tablet] 10 mg PO DAILY 05/20/16 Aspirin [Aspirin 81 mg Chewable Tablet] 81 mg PO DAILY 05/20/16 Hydrochlorothiazide [Hydrodiuril 25 mg Tablet] 25 mg PO QAM 05/20/16 Methadone HCl [Dolophine 10 mg Tablet] 20 mg PO TIDP PRN 05/20/16 Alprazolam [Xanax] 1 mg PO QHS 05/21/16 Dextroamphetamine/Amphetamine [Adderall 20 mg Tablet] 20 mg PO TID 05/21/16 Fluticasone Propionate [Flonase Nasal [place] 50 Mcg/[place] 16 gm] 2 spray NASL DAILY #1 spray.pump 05/24/16 Levofloxacin [Levaquin 750 mg Tablet] 750 mg PO DAILY #5 tablet 05/24/16 Metoprolol Tartrate [Lopressor 25 mg Tablet] 25 mg PO Q12 #60 tablet 05/24/16 History of Present Illness History of Present Illness: CARLOS CARDONA is a 60 year old male known to my practice who presented to the Ed with complaint of worsening shortness of breath. Patient reported associated intermittent chest pain, increasing exertional shortness of breath over the last couple of months. Patient reported excessive weight gain recently. There is described associated orthopnea but denied PND. No palpitation. There is some improvement in leg selling but noticed worsening firmness around his abdomen. Patient denied any associated fever or chills. No coughing or sputum production. Patient do have history of diabetes mellitus type 2, HTN, Chronic pain syndrome due to degenerative disc disease and knee joint arthritis. He did admit to significant alcohol ingestion. His initial evaluation in the ED did revealed bibasilar air space disease process with elevated NT Pro-BNP level. In view of his symptoms presentation, physical examination and laboratory findings, he was advised hospitalization for further evaluation and management. Hospital Course Hospital Course: Patient was admitted for left lower lobe pneumonia and acute systolic CHF. His hospitalization was significant for episode of paroxysmal atrial fibrillation that responded to beta suha usage and maintenance on Metoprolol therapy. It was revealed during this hospitalization that patient has history of obstructive sleep apnea for which he was using CPAP machine which he has not been using due to issue with procurement. Patient will be schedule for outpatient sleep study as well as 24 hours holter monitoring evaluation. He will be discharged home on Levofloxacin 750 mg p.o daily x 5 days, Metoprolol 25 mg p.o bid and Fluticasone NS 2 puffs / nostrum daily along with his other preadmission medication. He will follow up in the office as instructed upon discharge. Physical Exam Vital Signs: Temp Pulse Resp BP Pulse Ox 98.1 F 86 16 124/85 98 05/24/16 11:15 05/24/16 14:00 05/24/16 11:15 05/24/16 11:15 05/24/16 11:15 Intake & Output 05/23/16 05/24/16 05/25/16 06:59 06:59 06:59 Intake Total 2019 1759 360 Output Total 2099 4550 500 Balance -80 -2791 -140 Weight 120 kg Physical Exam: General appearance: PRESENT: no acute distress, cooperative, obese Head exam: PRESENT: atraumatic, normocephalic Eye exam: PRESENT: conjunctiva pink, EOMI, PERRLA. ABSENT: scleral icterus Neck exam: PRESENT: full ROM. ABSENT: carotid bruit, JVD, lymphadenopathy, thyromegaly Respiratory exam: PRESENT: clear to auscultation zhanna Cardiovascular exam: PRESENT: RRR. ABSENT: diastolic murmur, rubs, systolic murmur GI/Abdominal exam: PRESENT: normal bowel sounds, soft. ABSENT: distended, guarding, mass, organomegaly, rebound, tenderness Extremities exam: PRESENT: pedal edema - comparative improvement. Musculoskeletal exam: PRESENT: deformity - related to joint involvement with arthritis. Neurological exam: PRESENT: alert, awake, oriented to person, oriented to place , oriented to time, oriented to situation, CN II-XII grossly intact. ABSENT: motor sensory deficit Psychiatric exam: PRESENT: appropriate affect, normal mood. ABSENT: homicidal ideation, suicidal ideation Skin exam: PRESENT: dry, intact, warm. ABSENT: cyanosis, rash Results Laboratory Results: 05/22/16 04:12 05/22/16 04:12 Impressions: Chest X-Ray 05/20/16 10:06 IMPRESSION: Patchy left basilar infiltrate/atelectatic change with likely trace pleural fluid. Chest/Abdomen CTA 05/20/16 17:09 IMPRESSION: Bilateral airspace disease in the lower lobes and lingula with a small left pleural effusion. NO PULMONARY EMBOLI. Qualifiers PATEINT BEING DISCHARGED WITH ANY OF THE FOLLOWING DIAGNOSIS?: Heart Failure HF Pt being discharged on ACEI for LVEF less than 40%?: No Reason(s) for not prescribing ACEI:: Tx not tolerated HF Pt being discharged on ARBS for LVEF less than 40%?: No Reason(s) for not prescribing ARBS:: Tx not tolerated HF Pt discharged on evidence-based Beta Suha?: Yes Plan Discharge Plan: D/C home today with follow up in the office as instructed. Time Spent: Less than 30 Minutes
[2016-05-24 18:23] VITALS: BP 140/91
== END 2016-05-24 18:34 | disposition home or self-care (01) | DRG 193 ==
LOC: ER 09:39 → EH 20:05 → 3S 05-21 00:43
PROVIDERS: ADMIT Internal Medicine Geriatric Medicine; ATTEND Internal Medicine Geriatric Medicine
PROC: 5A09457 Assistance with Respiratory Ventilation, 24-96 Consecutive Hours, Continuous Positive Airway Pressure (ICD-10-PCS; principal; 2016-05-20)
DX: J18.9 Pneumonia, unspecified organism (principal); I50.21 Acute systolic (congestive) heart failure; I11.0 Hypertensive heart disease with heart failure; E11.9 Type 2 diabetes mellitus without complications; E66.9 Obesity, unspecified; Z68.37 Body mass index [BMI] 37.0-37.9, adult; E78.5 Hyperlipidemia, unspecified; G47.33 Obstructive sleep apnea (adult) (pediatric); I48.0 Paroxysmal atrial fibrillation; G89.4 Chronic pain syndrome; M17.10 Unilateral primary osteoarthritis, unspecified knee; F32.9 Major depressive disorder, single episode, unspecified; Z79.891 Long term (current) use of opiate analgesic; Z79.82 Long term (current) use of aspirin; Z79.899 Other long term (current) drug therapy; Z87.891 Personal history of nicotine dependence
CPT/HCPCS: 36415; 71020; 71275; 80053; 81001; 82550; 82553; 83880; 84484; 85025; 85379; 85610; 85730; 86803; 86804; 87040; 93005; 93010; 93306; 94660; 99285; J0456; J0696; J1650; J1940; J1956; J3490

== ENCOUNTER → 2017-02-28 | Outpatient (CLI) | payer MEDICARE ==
--- NOTE | 2017-02-28 15:08 | RADIOLOGY REPORT (SQ) ---
EXAM DESCRIPTION: RIBS LEFT W/PA CHEST COMPLETED DATE/TIME: 02/28/2017 1:20 pm REASON FOR STUDY: PLEURODYNIA R07.81 PLEURODYNIA COMPARISON: CT chest 05/20/2016 TECHNIQUE: Frontal view of the chest and additional views of the left ribs acquired. NUMBER OF VIEWS: PA chest, left rib detail five views LIMITATIONS: None. FINDINGS: FRONTAL CXR: Minimal left basilar atelectasis. Right lung clear. No pneumothorax or pleu ral effusion. Cardiac silhouette size upper limits of normal. Karon, bony structures unremarkable. RIBS: No displaced rib fractures. No lytic or blastic bony lesions. OTHER: Osteoarthritis left shoulder. Lap band prosthesis at the GE junction IMPRESSION: Minimal left basilar atelectasis. No pneumothorax. No acute displaced rib fractures are identified. COMMENT: SITE OF TRAUMA/COMPLAINT MARKED/STAMP COMPLETED: Yes TECHNICAL DOCUMENTATION: JOB ID: [id number] [employer]- All Rights Reserved
== END ==
LOC: OD 12:51
PROVIDERS: ATTEND Family Medicine
DX: R07.81 Pleurodynia (principal); J98.11 Atelectasis; M19.012 Primary osteoarthritis, left shoulder

== ENCOUNTER 2018-12-19 09:38 | Emergency (ER) | payer MEDICARE ==
[2018-12-19 11:19] LABS: ABSOLUTE LYMPHOCYTES (AUTO) 1.4 10^3/uL (0.5-4.7); ABSOLUTE MONOCYTES (AUTO) 1.7 10^3/uL (0.1-1.4); ABSOLUTE NEUT (AUTO) 8.1 10^3/uL (1.7-8.2); BASOPHILS % (AUTO) 0.4 % (0-2); EOSINOPHILS % (AUTO) 0.4 % (0-6); HEMATOCRIT 47.8 % (37.9-51.0); HEMOGLOBIN 16.2 g/dL (13.5-17.0); LYMPHOCYTES % (AUTO) 12.2 % (13-45); MEAN CORPUSCULAR HEMOGLOBIN 33.1 pg (27.0-33.4); MEAN CORPUSCULAR HGB CONC 33.9 g/dL (32.0-36.0); MEAN CORPUSCULAR VOLUME 98 fl (80-97); MONOCYTES % (AUTO) 15.2 % (3-13); PLATELET COUNT 235 10^3/uL (150-450); RED BLOOD COUNT 4.88 10^6/uL (4.35-5.55); RED CELL DISTRIBUTION WIDTH 13.5 % (11.5-14.0); SEGMENTED NEUTROPHILS % (AUTO) 71.8 % (42-78); TOTAL CELLS COUNTED % (AUTO) 100 %; WHITE BLOOD COUNT 11.2 10^3/uL (4.0-10.5)
[2018-12-19] MEDS ORDERED: ASPIRIN 325 MG TABLET PO ONE (11:19)
--- NOTE | 2018-12-19 11:19 | ER Document Report ---
ED Respiratory Problem - General Chief Complaint: Shortness Of Breath Stated Complaint: DIFFICULTY BREATHING Time Seen by Provider: 12/19/18 11:11 Primary Care Provider: SHAUNA BRYAN DO [Primary Care Provider] - Follow up as needed Information source: Patient Notes: HPI: Patient is a 62-year-old male who presents today stating starting last night he started to have some shortness of breath mostly when bending over. He also states when he lays flat it exacerbates. He feels a "burning" in his throat and chest at the same time. Patient denies any runny nose, congestion, cough, fevers, vomiting, abdominal pain, or leg swelling above baseline. Patient states when 4 years ago he had similar symptoms and they started him on diuretic medication. He states a remote history of smoking. ROS: See HPI All other review of systems reviewed and otherwise negative Reviewed vital signs and nursing note as charted by RN. PHYSICAL EXAM: CONSTITUTIONAL: Alert and oriented and responds appropriately to questions. Well-appearing; well-nourished HEAD: Normocephalic; atraumatic EYES: PERRL; Conjunctivae clear, sclerae non-icteric ENT: Normal nose; no rhinorrhea; moist mucous membranes; pharynx without lesions noted NECK: Supple without meningismus; non-tender; no cervical lymphadenopathy, no masses CARD: Regular rate and rhythm; no murmurs; symmetric distal pulses RESP: Normal chest excursion without splinting or tachypnea; breath sounds clear and equal bilaterally; no wheezes, no rhonchi, no rales ABD/GI: Normal bowel sounds; non-distended; soft, non-tender; no palpable organomegaly or masses BACK: The back appears normal and is non-tender to palpation EXT: Normal ROM in all joints; lateral knee scars consistent with prior surgery; patient has some chronic appearing bo induration/edema to the lower extremities SKIN: No acute lesions noted NEURO: CN 2-12 intact; 5/5 bilateral upper and lower extremity strength with sensation intact to light touch PSYCH: The patient's mood and manner are appropriate. Grooming and personal hygiene are appropriate. TRAVEL OUTSIDE OF THE [place] IN LAST 30 DAYS: No - Related Data Allergies/Adverse Reactions: No Known Allergies Allergy (Verified 05/20/16 10:01) Home Medications: Methadone. Amlodipine. Metoprolol. Hydrochlorothiazide. Adderall. Xanax Past Medical History - Social History Smoking Status: Never Smoker Family History: Reviewed & Not Pertinent Patient has suicidal ideation: No Patient has homicidal ideation: No - Past Medical History Cardiac Medical History: Reports: Hx Hypertension Endocrine Medical History: Reports: Hx Diabetes Mellitus Type 2 Renal/ Medical History: Denies: Hx Peritoneal Dialysis Psychiatric Medical History: Reports: Hx Depression Past Surgical History: Reports: Hx Abdominal Surgery - EGD; lap band; abd hernia, Hx Orthopedic Surgery - bilat knee - Immunizations Hx Diphtheria, Pertussis, Tetanus Vaccination: Yes Physical Exam - Vital signs Vitals: Temp Pulse Resp BP Pulse Ox 99 F 82 16 161/88 H 93 12/19/18 09:42 12/19/18 09:42 12/19/18 09:42 12/19/18 09:42 12/19/18 09:42 Course - Re-evaluation Re-evalutation: 12/19/18 11:19 Given the history and physical we will obtain basic labs, EKG, BNP, x-ray of the chest, and reassess. I do believe PE and dissection to be unlikely at this time. I would like to assess the possibility of heart failure or ACS. Patient is currently pain-free. 12/19/18 12:19 EKG shows a heart of 74, normal sinus rhythm, normal axis, no ST elevation or depression. 12/19/18 16:17 Repeat troponin as recorded. Patient still has no pain. X-ray of the chest as recorded. EKG is unremarkable. Heart score is less than or equal to 3. Given the burning sensation when he lays mostly flat, I do believe this possibly is reflux related. Patient will be discharged home with strict return precautions and I will provide a follow-up with a senior director marketing. I will start the patient on antiacid medications. - Vital Signs Vital signs: Temp Pulse Resp BP Pulse Ox 99 F 82 16 161/88 H 93 12/19/18 09:42 12/19/18 09:42 12/19/18 09:42 12/19/18 09:42 12/19/18 09:42 - Laboratory Result Diagrams: 12/19/18 10:21 12/19/18 10:21 Laboratory results interpreted by me: 12/19/18 12/19/18 12/19/18 10:21 10:21 10:21 WBC 11.2 H MCV 98 H Lymph % (Auto) 12.2 L [place] % (Auto) 15.2 H Absolute Monos (auto) 1.7 H Sodium 134.9 L Chloride 92 L Carbon Dioxide 33 H Total Protein 8.9 H Urine Protein 30 H Urine Blood SMALL H Discharge - Discharge Clinical Impression: Atypical chest pain Condition: Good Disposition: HOME, SELF-CARE Additional Instructions: Come back immediately for any return or increased pain, fevers, vomiting, leg swelling, or any other acute problems. Please follow-up with the primary care physician and senior director marketing as we have discussed. Prescriptions: Esomeprazole Mag Trihydrate [Nexium] 40 mg PO DAILY 30 Days #30 capsule. Referrals: SHAUNA BRYAN DO [Primary Care Provider] - Follow up as needed
[2018-12-19 11:24] LABS: ALBUMIN 4.7 g/dL (3.5-5.0); ALKALINE PHOSPHATASE 78 U/L (38-126); ANION GAP 10 (5-19); ASPARTATE AMINO TRANSFERASE 29 U/L (17-59); BILIRUBIN,DIRECT 0.2 mg/dL (0.0-0.4); BILIRUBIN,TOTAL 1.2 mg/dL (0.2-1.3); BLOOD UREA NITROGEN 11 mg/dL (7-20); CALCIUM 9.7 mg/dL (8.4-10.2); CARBON DIOXIDE 33 mmol/L (22-30); CHLORIDE 92 mmol/L (98-107); GLUCOSE 107 mg/dL (75-110); POTASSIUM 3.6 mmol/L (3.6-5.0); TOTAL PROTEIN 8.9 g/dL (6.3-8.2)
[2018-12-19 11:27] LABS: APPEARANCE,URINE CLEAR; BILIRUBIN,URINE NEGATIVE (NEGATIVE); COLOR,URINE YELLOW; GLUCOSE, URINE NEGATIVE (NEGATIVE); KETONES,URINE NEGATIVE (NEGATIVE); LEUKOCYTE ESTERASE,URINE NEGATIVE (NEGATIVE); NITRITE,URINE NEGATIVE (NEGATIVE); PROTEIN,URINE 30 mg/dL (NEGATIVE); URINE SPECIFIC GRAVITY 1.011; UROBILINOGEN,URINE NEGATIVE mg/dL (<2.0)
[2018-12-19 11:43] LABS: NT PRO BNP 394 pg/mL (5-900)
[2018-12-19 11:44] LABS: TROPONIN I < 0.012 ng/mL
--- NOTE | 2018-12-19 11:57 | RADIOLOGY REPORT (SQ) ---
EXAM DESCRIPTION: CHEST 2 VIEWS COMPLETED DATE/TIME: 12/19/2018 11:27 am REASON FOR STUDY: 21, shortness of breath COMPARISON: CT chest 05/28/2016 Two-view chest 05/20/2016 EXAM PARAMETERS: NUMBER OF VIEWS: two views TECHNIQUE: Digital Frontal and Lateral radiographic views of the chest acquired. RADIATION DOSE: NA LIMITATIONS: none FINDINGS: LUNGS AND PLEURA: Minimal bibasilar atelectasis. No gross pleural effusions or pneumothorax. No pulmonary nodules. MEDIASTINUM AND HILAR STRUCTURES: No masses or contour abnormalities. HEART AND VASCULAR STRUCTURES: Heart normal size. No evidence for failure. BONES: No acute findings. HARDWARE: Left upper quadrant lap band prosthesis unchanged OTHER: No other significant finding. IMPRESSION: Bibasilar atelectasis Lap band prosthesis TECHNICAL DOCUMENTATION: JOB ID: [id number] [facility]- All Rights Reserved Reading location - IP/workstation name: [email or web address]
[2018-12-19] MEDS ORDERED: LIDOCAINE 2% VISCOUS SOLN 20 ML UDCUP PO ONE (16:16)
[2018-12-19] MEDS ORDERED: METOCLOPRAMIDE HCL ORAL SOLN 10 MG/10 ML UDCUP PO ONE (16:16)
[2018-12-19] MEDS ORDERED: MAG HYDROX/AL HYDROX/SIMETH SUSP 30 ML UDCUP PO ONE (16:16)
[2018-12-19 16:34] VITALS: BP 154/87
--- NOTE | 2018-12-20 00:25 | EKG REPORT ---
SEVERITY:- ABNORMAL ECG - SINUS RHYTHM PROBABLE INFERIOR INFARCT, AGE INDETERMINATE CONSIDER POSTERIOR WALL INVOLVEMENT : Confirmed by: Maximilian Castillo 20-Dec-2018 00:23:43
== END 2018-12-19 16:36 | disposition home or self-care (01) ==
LOC: ER 09:38
DX: R07.89 Other chest pain (principal); R06.02 Shortness of breath; I10 Essential (primary) hypertension; Z79.899 Other long term (current) drug therapy; Z87.891 Personal history of nicotine dependence; E11.9 Type 2 diabetes mellitus without complications
CPT/HCPCS: 93005; 99285; 36415; 85025; 80053; 81001; 84484; 83880; 71046; 93010; A9270 ×2; J3490

== ENCOUNTER 2019-12-20 06:48 | Inpatient (IN) | payer MEDICARE ==
[2019-12-20 07:33] LABS: VENOUS BLOOD BASE EXCESS 6.6 mmol/L; VENOUS BLOOD HCO3 32.8 mmol/L (20-32); VENOUS BLOOD PCO2 51.9 mmHg (35-63); VENOUS BLOOD PH 7.42 (7.30-7.42)
[2019-12-20] MEDS ORDERED: ACETAMINOPHEN 325 MG TABLET PO ONE (07:42)
[2019-12-20] MEDS ORDERED: NORMAL SALINE 1000 ML 1,000 ML IV ONE ×2 (07:43→09:53)
[2019-12-20 07:44] LABS: INTERNATIONAL RATION (INR) 1.02; PROTHROMBIN TIME 13.6 SEC (11.4-15.4)
[2019-12-20 07:45] LABS: PARTIAL THROMBOPLASTIN TIME 35.2 SEC (23.5-35.8)
[2019-12-20 08:01] LABS: NT PRO BNP 273 pg/mL (<125)
[2019-12-20 08:04] LABS: ALBUMIN 3.9 g/dL (3.5-5.0); ALKALINE PHOSPHATASE 98 U/L (38-126); ANION GAP 11 (5-19); ASPARTATE AMINO TRANSFERASE 68 U/L (17-59); BILIRUBIN,DIRECT 0.5 mg/dL (0.0-0.4); BILIRUBIN,TOTAL 0.9 mg/dL (0.2-1.3); BLOOD UREA NITROGEN 16 mg/dL (7-20); CALCIUM 8.6 mg/dL (8.4-10.2); CARBON DIOXIDE 34 mmol/L (22-30); CHLORIDE 85 mmol/L (98-107); GLUCOSE 173 mg/dL (75-110); POTASSIUM 3.4 mmol/L (3.6-5.0); TOTAL PROTEIN 7.5 g/dL (6.3-8.2)
[2019-12-20 08:06] LABS: TROPONIN I < 0.012 ng/mL
[2019-12-20 08:15] LABS: HEMATOCRIT 41.7 % (37.9-51.0); HEMOGLOBIN 15.1 g/dL (13.5-17.0); MEAN CORPUSCULAR HEMOGLOBIN 34.2 pg (27.0-33.4); MEAN CORPUSCULAR HGB CONC 36.3 g/dL (32.0-36.0); MEAN CORPUSCULAR VOLUME 94 fl (80-97); PLATELET COUNT 188 10^3/uL (150-450); RED BLOOD COUNT 4.43 10^6/uL (4.35-5.55); RED CELL DISTRIBUTION WIDTH 12.6 % (11.5-14.0); WHITE BLOOD COUNT 4.5 10^3/uL (4.0-10.5)
--- NOTE | 2019-12-20 08:15 | RADIOLOGY REPORT (SQ) ---
EXAM DESCRIPTION: CHEST SINGLE VIEW IMAGES COMPLETED DATE/TIME: 12/20/2019 8:05 am REASON FOR STUDY: sobr/fever/cough COMPARISON: 12/20/2019 EXAM PARAMETERS: NUMBER OF VIEWS: One view. TECHNIQUE: Single frontal radiographic view of the chest acquired. RADIATION DOSE: NA LIMITATIONS: None. FINDINGS: LUNGS AND PLEURA: Low lung volumes. No focal consolidation, pleural effusion or pneumotho rax. MEDIASTINUM AND HILAR STRUCTURES: No masses. Contour normal. HEART AND VASCULAR STRUCTURES: Heart normal in size. Normal vasculature. BONES: No acute findings. HARDWARE: None in the chest. Partially visualized lap band prostheses. OTHER: No other significant finding. IMPRESSION: Low lung volumes without other evidence of acute intrathoracic process. TECHNICAL DOCUMENTATION: JOB ID: [id number] [employer]- All Rights Reserved Reading location - IP/workstation name: [email or web address]
[2019-12-20 08:37] LABS: ABSOLUTE LYMPHOCYTES# (MANUAL) 0.8 10^3/uL (0.5-4.7); ABSOLUTE MONOCYTES # (MANUAL) 0.9 10^3/uL (0.1-1.4); BAND NEUTROPHILS % (MANUAL) 1 % (3-5); BASOPHILS % (MANUAL) 0 % (0-2); EOSINOPHILS % (MANUAL) 0 % (0-6); LYMPHOCYTES % (MANUAL) 17 % (13-45); MONOCYTES % (MANUAL) 19 % (3-13); PLATELET COMMENT ADEQUATE; SEGMENTED NEUTROPHILS % (MAN) 63 % (42-78); TOTAL CELLS COUNTED 100
[2019-12-20 08:38] LABS: PLATELET CLUMPS PRESENT
[2019-12-20 08:39] LABS: RBC MORPHOLOGY COMMENT NORMO-CYTIC/CHROMIC
[2019-12-20 08:52] LABS: A TYPE INFLUENZA AG NEGATIVE (NEGATIVE); B INFLUENZA AG NEGATIVE (NEGATIVE)
[2019-12-20 12:20] LABS: APPEARANCE,URINE CLEAR; BILIRUBIN,URINE NEGATIVE (NEGATIVE); COLOR,URINE YELLOW; GLUCOSE, URINE NEGATIVE (NEGATIVE); KETONES,URINE NEGATIVE (NEGATIVE); LEUKOCYTE ESTERASE,URINE TRACE (NEGATIVE); NITRITE,URINE NEGATIVE (NEGATIVE); PROTEIN,URINE 30 mg/dL (NEGATIVE)
--- NOTE | 2019-12-20 12:20 | RADIOLOGY REPORT (SQ) ---
EXAM DESCRIPTION: CTA CHEST IMAGES COMPLETED DATE/TIME: 12/20/2019 11:37 am REASON FOR STUDY: sobr/covid positive 2 weeks ago/d dimer elevated COMPARISON: 05/20/2016 and 12/19/2018 TECHNIQUE: CT scan of the chest performed using helical scanning technique with dynamic intravenous contrast injection. Images reviewed with lung, soft tissue and bone windows. Reconstructed coronal and sagittal MPR images reviewed. Additional 3 dimensional post-processing performed to develop Maximal Intensity Projection images (FL P). All images stored on PACS. All CT scanners at this facility use dose modulation, iterative reconstruction, and/or weight based d osing when appropriate to reduce radiation dose to as low as reasonably achievable (ALARA). [facility]: Dose Right [facility]: CareDose [facility]: Dose Right [facility]: Teradose 4D [facility]: SparkBase CONTRAST TYPE AND DOSE: contrast/concentration: Isovue 350.00 mmol/ml; Total Contrast Delivered: 73. 0 ml; Total Saline Delivered: 70.0 ml Contrast bolus optimized for the pulmonary arteries. Not diagnostic for the aorta. RENAL FUNCTION: BUN 16; creatinine 0.96 RADIATION DOSE: CT Rad equipment meets quality standard of care and radiation dose reduction techniq ues were employed. CTDIvol: 9.9 - 35.0 mGy. DLP: 1132 mGy-cm. . LIMITATIONS: None. FINDINGS: LUNGS AND PLEURA: Multifocal mixed interstitial and airspace opacities are seen throughout the lungs. No pleural effusion. No pneumothorax. AORTA AND GREAT VESSELS: No aneurysm. Contrast bolus not optimized for the aorta. HEART: No pericardial effusion. Mild coronary artery calcifications. PULMONARY ARTERIES: No emboli visualized in the main pulmonary arteries or the segmental branches. HILAR AND MEDIASTINAL STRUCTURES: Scattered mediastinal lymph nodes. The largest is seen in the AP w indow, measuring up to 1.2 cm in short axis. HARDWARE: None in the chest. UPPER ABDOMEN: Limited exam. Hydropic gallbladder with cholelithiasis. Hepatic steatosis. Lap band , partially imaged. No acute findings. THYROID AND OTHER SOFT TISSUES: Bilateral gynecomastia. No adenopathy. BONES: No acute or significant finding. 3D MIPS: Confirm above findings. OTHER: No other significant finding. IMPRESSION: 1. No central or segmental pulmonary embolus. 2. Multifocal mixed interstitial and airspace opacities consistent with multi lobar pneumonia. Aleksander mmend consideration for atypical organisms (to include viral) in treatment planning. 3. Chronic and incidental findings to include hydropic gallbladder with cholelithiasis, hepatic stea tosis, lap band, gynecomastia. COMMENT: Quality ID # [id number]: Final reports with documentation of one or more dose reduction techniques (e.g., Automated exposure control, adjustment of the mA and/or kV according to patient size, use of iterative reconstruction technique) TECHNICAL DOCUMENTATION: JOB ID: [id number] 2010 [employer]- All Rights Reserved Reading location - IP/workstation name: [email or web address]
[2019-12-20 12:38] LABS: URINE AMPHETAMINES SCREEN NEGATIVE; URINE BARBITURATES SCREEN NEGATIVE; URINE COCAINE SCREEN NEGATIVE; URINE MARIJUANA (THC) SCREEN NEGATIVE; URINE PHENCYCLIDINE SCREEN NEGATIVE
[2019-12-20 12:41] LABS: URINE BENZODIAZEPINES SCREEN UNCONFIRMED POSITIVE; URINE METHADONE SCREEN UNCONFIRMED POSITIVE
--- NOTE | 2019-12-20 14:40 | ER Document Report ---
Entered by JL SMITH SCRIBE 12/20/19 0706 Acting as scribe for:ARMIDA ISAAC MD ED Respiratory Problem - General Chief Complaint: Shortness Of Breath Stated Complaint: SHORTNESS OF BREATH Primary Care Provider: SHAUNA BRYAN DO [Primary Care Provider] - Follow up as needed Mode of Arrival: Wheelchair Information source: Patient, Emergency Med Personnel Notes: This 63 year old male patient with a history of CHF presents to the ED today with complaints of increasing shortness of breath for the past x4 days. Patient reports associated dyspnea on exertion, mildy productive cough with clear sputum only in the mornings, fever, and chills. He states that he was orthopneic last night and couldn't sleep, so he decided to come to the ED today.He notes that he tested positive for COVID x2 weeks ago. He reports a history of obstructive sleep apnea and states that he uses CPAP at night. Denies any chest pain. Per nursing, patient was initially 81% on RA in triage and once he arrived in the room, he was placed on 3L supplemental O2 via NC with O2 sats up to 93%. TRAVEL OUTSIDE OF THE [place] IN LAST 30 DAYS: No - Related Data Allergies/Adverse Reactions: No Known Allergies Allergy (Verified 05/20/16 10:01) Past Medical History - General Information source: [facility] Records - Social History Smoking Status: Unknown if Ever Smoked Smoking Education Provided: No Family History: Reviewed & Not Pertinent - Past Medical History Cardiac Medical History: Reports: Hx Atrial Fibrillation, Hx Congestive Heart Failure, Hx Hypercholesterolemia, Hx Hypertension Pulmonary Medical History: Reports: Hx Pneumonia, Hx Sleep Apnea Endocrine Medical History: Reports: Hx Diabetes Mellitus Type 2 Psychiatric Medical History: Reports: Hx Depression Past Surgical History: Reports: Hx Abdominal Surgery - EGD; lap band; abd hernia, Hx Orthopedic Surgery - bilat knee - Immunizations Hx Diphtheria, Pertussis, Tetanus Vaccination: Yes Review of Systems - Review of Systems Constitutional: See HPI, Chills, Fever EENT: No symptoms reported Cardiovascular: See HPI, Orthopnea, Dyspnea. denies: Chest pain Respiratory: See HPI, Cough, Short of breath, Sputum -: Yes All other systems reviewed and negative Physical Exam - Vital signs Vitals: Temp Pulse Resp BP Pulse Ox 99.5 F 100 24 H 133/75 H 81 L 12/20/19 07:04 12/20/19 07:04 12/20/19 07:04 12/20/19 07:04 12/20/19 07:04 - General General appearance: Alert In distress: Moderate - HEENT Head: Normocephalic, Atraumatic Eyes: Normal Pupils: PERRL - Respiratory Respiratory status: Respiratory distress - Patient was initially 81% on RA and was then placed on 3L supplemental O2 via NC with O2 sats up to 93% Chest status: Nontender Breath sounds: Decreased air movement - Diminished breath sounds Chest palpation: Normal - Cardiovascular Rhythm: Regular. No: Irregularly irregular Heart sounds: Normal auscultation, S1 appreciated, S2 appreciated Murmur: No Friction rub: No Gallop: None auscultated - Abdominal Inspection: Obese, Other - Lap band device noted to mid left abdomen Distension: Distended Bowel sounds: Normal Tenderness: Nontender Organomegaly: No organomegaly - Back Back: Normal, Nontender - Extremities General upper extremity: Normal inspection General lower extremity: Edema - Chronic appearing brawny edema per patient. No pitting edema appreciated. - Neurological Neuro grossly intact: Yes Orientation: AAOx4 Troy Coma Scale Eye Opening: Spontaneous Ace Coma Scale Verbal: Oriented Troy Coma Scale Motor: Obeys Commands Troy Coma Scale Total: 15 - Psychological Associated symptoms: Normal affect, Normal mood - Skin Skin Temperature: Warm Skin Moisture: Diaphoretic Skin Color: Normal Course - Re-evaluation Re-evalutation: 12/20/19 14:34 Patient resting with 3 L nasal O2 sats are 94 to 95%. - Vital Signs Vital signs: Temp Pulse Resp BP Pulse Ox 99.5 F 100 8 L 107/80 93 12/20/19 07:04 12/20/19 07:04 12/20/19 12:01 12/20/19 13:01 12/20/19 13:01 12/20/19 14:34 Vital signs stable at this time with a pulse ox of 93% on 3 L nasal O2 - Laboratory Result Diagrams: 12/20/19 07:11 12/20/19 07:11 Laboratory results interpreted by me: 12/20/19 12/20/19 12/20/19 07:11 07:11 07:11 MCH 34.2 H MCHC 36.3 H Band Neutrophils % 1 L Monocytes % (Manual) 19 H D-Dimer VBG HCO3 Sodium 129.5 L Potassium 3.4 L Chloride 85 L Carbon Dioxide 34 H Glucose 173 H Direct Bilirubin 0.5 H AST 68 H Lactate Dehydrogenase 264 H NT-Pro-B Natriuret Pep 273 H Urine Protein Urine Blood Urine Urobilinogen Ur Leukocyte Esterase 12/20/19 12/20/19 12/20/19 07:11 07:11 12:01 MCH MCHC Band Neutrophils % Monocytes % (Manual) D-Dimer 0.79 H VBG HCO3 32.8 H Sodium Potassium Chloride Carbon Dioxide Glucose Direct Bilirubin AST Lactate Dehydrogenase NT-Pro-B Natriuret Pep Urine Protein 30 H Urine Blood SMALL H Urine Urobilinogen 2.0 H Ur Leukocyte Esterase TRACE H Laboratory shows a BNP of 273 small amount of blood noted in urine sodium is 129 glucose of 173 and a troponin level less than 0.012 and the D-dimer came back elevated at 0.79. - Diagnostic Test Radiology reviewed: Image reviewed, Reports reviewed Radiology results interpreted by me: 12/20/19 13:02 Chest X-Ray 12/20/19 07:21 IMPRESSION: Low lung volumes without other evidence of acute intrathoracic process. Chest/Abdomen CTA 12/20/19 09:49 IMPRESSION: 1. No central or segmental pulmonary embolus. 2. Multifocal mixed interstitial and airspace opacities consistent with multi lobar pneumonia. Recommend consideration for atypical organisms (to include viral) in treatment planning. 3. Chronic and incidental findings to include hydropic gallbladder with cholelithiasis, hepatic steatosis, lap band, gynecomastia. 12/20/19 14:36 Chest x-ray shows low volumes without further evidence of acute intrathoracic process. CTA chest abdomen shows multifocal mixed interstitial airspace opacities consistent with multi lobar pneumonia consideration for atypical organism including viral. Also noted incidental findings to include hydropic gallbladder with cholelithiasis hepatic steatosis lap band and gynecomastia. - EKG Interpretation by Me Additional EKG results interpreted by me: 12/20/19 14:37 Twelve-lead EKG shows a normal sinus rhythm rate of 72 normal VA interval normal QRS interval and normal QT interval. No evidence for an acute STEMI left axis deviation Discharge - Discharge Clinical Impression: Pneumonia due to 2019 novel coronavirus, OLE (obstructive sleep apnea), Diabetes mellitus type 2 in obese Condition: Fair Disposition: ADMITTED INPATIENT Admitting Provider: Anam (Hospitalist) Unit Admitted: IMCU - Admitted Referrals: SHAUNA BRYAN DO [Primary Care Provider] - Follow up as needed I personally performed the services described in the documentation, reviewed and edited the documentation which was dictated to the scribe in my presence, and it accurately records my words and actions.
[2019-12-20] MEDS ORDERED: NORMAL SALINE 250 ML IV PRN ×2 (16:48→17:00)
[2019-12-20] MEDS ORDERED: IPRATROPIUM/ALBUTEROL 0.5-2.5 MG/3 ML AMPUL NEB PRN (16:48)
[2019-12-20] MEDS ORDERED: ACETAMINOPHEN 325 MG TABLET PO PRN (16:48)
[2019-12-20] MEDS ORDERED: ONDANSETRON HCL INJ/PF 4 MG/2 ML SDV IV PRN (16:48)
[2019-12-20] MEDS ORDERED: LORAZEPAM INJ 2 MG/1 ML VIAL IV PRN (17:41)
--- NOTE | 2019-12-20 17:42 | PDOC H&P ---
History of Present Illness Admission Date/PCP: 12/20/19 15:39 SHAUNA GARCIA DO Patient complains of: SOB, generalized body ache History of Present Illness: CARLOS CARDONA is a 63 year old male, past medical history of hypertension, chronic low back pain on methadone, who came in the ED today due to shortness of breath. He started to experience generalized body malaise 1 week prior to admission. He consulted his primary care via telemedicine and he was told to get a Covid test. Covid test was done December 13 and the next day came back positive. He continued to have generalized body malaise with easy fatigability and low-grade fevers at home. 1 day prior to admission he started to experience shortness of breath and dyspnea on exertion. He had a portable pulse ox monitor which notes that his saturation is between 85 and 88%. In the emergency room blood pressure 133/75, heart rate 77, respiratory rate 21, O2 sat 81% on room air which improved to 95% on 2 L of nasal cannula. Chest x- ray was negative, CT chest showed multifocal pneumonia. Service was called to admit the patient for management of acute hypoxemic respiratory failure secondary to Covid pneumonia. Past Medical History Cardiac Medical History: Reports: Congestive Heart Failure, Hyperlipidema, Hypertension Pulmonary Medical History: Reports: Pneumonia, Sleep Apnea EENT Medical History: Reports: None Neurological Medical History: Reports: None Malignancy Medical History: Reports: None GI Medical History: Reports: None Psychiatric Medical History: Reports: Depression Infectious Medical History: Reports: None Past Surgical History Past Surgical History: Reports: Orthopedic Surgery - bilat knee Social History Information Source: Patient Lives with: Family Smoking Status: Former Smoker Cigarettes Packs Per Day: 1 Electronic Cigarette use?: No Number of Years Smokin Last Time Smoked: 30 years ago Frequency of Alcohol Use: Heavy Amount of Alcoholic Beverages Per Day: 1/2 pint of vodka a day Hx Recreational Drug Use: No Hx Prescription Drug Abuse: No Family History Family History: CAD, DM, Malignancy Parental Family History Reviewed: Yes Children Family History Reviewed: Yes Sibling(s) Family History Reviewed.: Yes Medication/Allergy Home Medications: Amlodipine Besylate [Norvasc 10 mg Tablet] 10 mg PO DAILY 05/20/16 Aspirin [Aspirin 81 mg Chewable Tablet] 81 mg PO DAILY 05/20/16 Hydrochlorothiazide [Hydrodiuril 25 mg Tablet] 25 mg PO QAM 05/20/16 Methadone HCl [Dolophine 10 mg Tablet] 20 mg PO TIDP PRN 05/20/16 Alprazolam [Xanax] 1 mg PO QHS 05/21/16 Dextroamphetamine/Amphetamine [Adderall 20 mg Tablet] 20 mg PO TID 05/21/16 Fluticasone Propionate [Flonase Nasal [place] 50 Mcg/[place] 16 gm] 2 spray NASL DAILY #1 spray.pump 05/24/16 Levofloxacin [Levaquin 750 mg Tablet] 750 mg PO DAILY #5 tablet 05/24/16 Metoprolol Tartrate [Lopressor 25 mg Tablet] 25 mg PO Q12 #60 tablet 05/24/16 Esomeprazole Mag Trihydrate [Nexium] 40 mg PO DAILY 30 Days #30 capsule. 12/19/18 Allergies/Adverse Reactions: No Known Allergies Allergy (Verified 05/20/16 10:01) Review of Systems Constitutional: PRESENT: as per HPI, anorexia, chills, fatigue, fever(s), weakness Ears: ABSENT: hearing changes Nose, Mouth, and Throat: ABSENT: mouth pain, sore throat Cardiovascular: PRESENT: dyspnea on exertion. ABSENT: chest pain, edema, orthropnea, palpitations Respiratory: PRESENT: cough, dyspnea. ABSENT: hemoptysis Genitourinary: ABSENT: dysuria Musculoskeletal: PRESENT: back pain Neurological: ABSENT: abnormal movements, abnormal speech, confusion, convulsions, dizziness Psychiatric: ABSENT: hallucinations Endocrine: ABSENT: heat intolerance Physical Exam Vital Signs: Temp Pulse Resp BP Pulse Ox 98.7 F 100 16 157/97 H 95 12/20/19 16:48 12/20/19 07:04 12/20/19 16:01 12/20/19 17:01 12/20/19 17:01 Intake & Output 12/19/19 12/20/19 12/21/19 06:59 06:59 06:59 Intake Total 95 Balance 95 Weight 121.8 kg General appearance: PRESENT: mild distress, obese Head exam: PRESENT: atraumatic, normocephalic Eye exam: PRESENT: EOMI, PERRLA Mouth exam: PRESENT: moist Neck exam: PRESENT: full ROM Respiratory exam: PRESENT: rales, symmetrical, unlabored Cardiovascular exam: PRESENT: RRR, +S1, +S2 Pulses: PRESENT: +2 pedal pulses bilateral GI/Abdominal exam: PRESENT: normal bowel sounds, soft. ABSENT: rebound, tende rness Extremities exam: ABSENT: +2 edema Neurological exam: PRESENT: alert, awake, oriented to person, oriented to place, oriented to time, oriented to situation Psychiatric exam: PRESENT: normal mood Skin exam: PRESENT: normal color Results Laboratory Results: 12/20/19 07:11 12/20/19 07:11 12/20/19 12/20/19 12/20/19 07:11 07:11 07:11 WBC 4.5 RBC 4.43 Hgb 15.1 Hct 41.7 MCV 94 MCH 34.2 H MCHC 36.3 H RDW 12.6 Plt Count 188 Seg Neutrophils % Not Reportable VBG pH VBG pCO2 VBG HCO3 VBG Base Excess Sodium 129.5 L Potassium 3.4 L Chloride 85 L Carbon Dioxide 34 H Anion Gap 11 BUN 16 Creatinine 0.96 Est GFR ( Amer) > 60 Glucose 173 H Lactic Acid 1.3 Calcium 8.6 Ferritin 229.00 Total Bilirubin 0.9 AST 68 H Alkaline Phosphatase 98 Total Protein 7.5 Albumin 3.9 Urine Color Urine Appearance Urine pH Ur Specific Arley Urine Protein Urine Glucose (UA) Urine Ketones Urine Blood Urine Nitrite Ur Leukocyte Esterase Urine WBC (Auto) Urine RBC (Auto) 12/20/19 12/20/19 07:11 12:01 WBC RBC Hgb Hct MCV MCH MCHC RDW Plt Count Seg Neutrophils % VBG pH 7.42 VBG pCO2 51.9 VBG HCO3 32.8 H VBG Base Excess 6.6 Sodium Potassium Chloride Carbon Dioxide Anion Gap BUN Creatinine Est GFR ( Amer) Glucose Lactic Acid Calcium Ferritin Total Bilirubin AST Alkaline Phosphatase Total Protein Albumin Urine Color YELLOW Urine Appearance CLEAR Urine pH 7.0 Ur Specific Arley 1.020 Urine Protein 30 H Urine Glucose (UA) NEGATIVE Urine Ketones NEGATIVE Urine Blood SMALL H Urine Nitrite NEGATIVE Ur Leukocyte Esterase TRACE H Urine WBC (Auto) 1 Urine RBC (Auto) 11 12/20/19 12/20/19 07:11 13:56 Troponin I < 0.012 < 0.012 NT-Pro-B Natriuret Pep 273 H Impressions: Chest X-Ray 12/20/19 07:21 IMPRESSION: Low lung volumes without other evidence of acute intrathoracic process. Chest/Abdomen CTA 12/20/19 09:49 IMPRESSION: 1. No central or segmental pulmonary embolus. 2. Multifocal mixed interstitial and airspace opacities consistent with multi lobar pneumonia. Recommend consideration for atypical organisms (to include viral) in treatment planning. 3. Chronic and incidental findings to include hydropic gallbladder with cholelithiasis, hepatic steatosis, lap band, gynecomastia. Assessment and Plan - Diagnosis (1) Acute respiratory failure with hypoxia Is this a current diagnosis for this admission?: Yes Plan: -Secondary to Covid pneumonia. Patient had a positive result at Dr. Garcia's office Friday last week -O2 sat 81% on room air improved to 95% on 2 L of nasal cannula -Chest x-ray negative. -CT chest showed multifocal pneumonia, no pulmonary embolism. -On 2 L of nasal cannula -Continue oxygen support. wean off as tolerated (2) Pneumonia due to 2019 novel coronavirus Is this a current diagnosis for this admission?: Yes Plan: -Tested positive last Friday at Dr. Garcia's office. -Symptoms of generalized fatigue low-grade fever exertional dyspnea and cough -Positive crackles on exam, on 2 L of nasal cannula -CT chest showed multifocal pneumonia, no pulmonary embolism -Retest pending -CRP, ferritin, D-dimer pending -Ordered convalescent plasma -dexa 6 mg IV daily -Ordered remdesivir, spoke to Sintia from pharmacy -Vitamin C, vitamin D, zinc -DuoNebs as needed -CODE STATUS DO NOT RESUSCITATE in the event of cardiac arrest. However patient is okay to be intubated for acute hypoxic respiratory failure (3) OLE (obstructive sleep apnea) Is this a current diagnosis for this admission?: Yes Plan: -CPAP at night. setting 12 -CPAP ordered nightly (4) Diabetes mellitus type 2 in obese Is this a current diagnosis for this admission?: Yes Plan: -Not on any medications -We will check A1c (5) Chronic prescription opiate use Is this a current diagnosis for this admission?: Yes Plan: -Back pain on methadone 10 mg [address] Garcia prescribes his opioid in the outpatient. Unable to verify because patient came in after office hours please verify dose (6) HTN (hypertension) Qualifiers: Hypertension type: essential hypertension Qualified Code(s): I10 - Essential (primary) hypertension Is this a current diagnosis for this admission?: Yes Plan: -Resumed hydrochlorothiazide, amlodipine, metoprolol (7) Hypokalemia Is this a current diagnosis for this admission?: Yes Plan: - mild K 3.4 - replaced. - continue to monitor (8) Hyponatremia Is this a current diagnosis for this admission?: Yes Plan: - Na 129.5 - s/p 2 bags NS. - repeat Na in the morning. (9) Alcohol dependence Qualifiers: Substance use status: unspecified alcohol-induced disorder Qualified Code(s): F10.29 - Alcohol dependence with unspecified alcohol-induced disorder Is this a current diagnosis for this admission?: Yes Plan: -Patient admits to drinking every day half a pint of vodka -Last drink 1 day prior to admission 2 shots of vodka -We will do CIWA score -Ativan as needed - Time Time Spent with patient: 35 or more minutes Anticipated Discharge Disposition: Home, Self Care Anticipated Discharge Timeframe: to be determined
[2019-12-20] MEDS ORDERED: POTASSIUM CHLORIDE 20 MEQ PACKET PO ONE (18:30)
[2019-12-20 18:32] LABS: C-REACTIVE PROTEIN 85.9 mg/L (<10.0)
[2019-12-20] MEDS: DEXAMETHASONE SOD PHOS INJ 10 MG/1 ML VIAL IV SCH (18:36)
[2019-12-20] MEDS: ASCORBIC ACID 500 MG TABLET PO SCH (18:36)
--- NOTE | 2019-12-20 18:53 | EKG REPORT ---
SEVERITY:- NORMAL ECG - SINUS RHYTHM : Confirmed by: Ron Powell MD 20-Dec-2019 18:51:27
[2019-12-20] MEDS: METHADONE HCL 10 MG TABLET PO SCH ×2 (20:14→22:06)
[2019-12-20] MEDS ORDERED: REMDESIVIR (EUA) 200 MG in NORMAL SALINE 250 ML IV ONE (21:00)
[2019-12-20] MEDS ORDERED: METOPROLOL TARTRATE 25 MG TABLET PO SCH (22:00)
[2019-12-20] MEDS: ALPRAZOLAM 0.5 MG TABLET PO SCH (22:05)
--- NOTE | 2019-12-20 23:01 | ADVANCED CARE ---
- Diagnosis (1) Acute respiratory failure with hypoxia Diagnosis Current: Yes (2) Pneumonia due to 2019 novel coronavirus Diagnosis Current: Yes (3) LOE (obstructive sleep apnea) Diagnosis Current: Yes (4) Diabetes mellitus type 2 in obese Diagnosis Current: Yes (5) Chronic prescription opiate use Diagnosis Current: Yes (6) HTN (hypertension) Diagnosis Current: Yes (7) Hypokalemia Diagnosis Current: Yes (8) Hyponatremia Diagnosis Current: Yes Attendance: patient personally, on speaker Resuscitation Status: Do Not Resuscitate Discussion: Patient wishes to be DNR in case of an arrest situation but he is ok to be intubated for acute respiratory failure for COVID. Designated his as POA. Care Planning Goals: - CODE status addressed Document(s) Completed: none Time Spent: <30 min but > 16 min
[2019-12-21 05:19] LABS: ABSOLUTE LYMPHOCYTES (AUTO) 0.7 10^3/uL (0.5-4.7); ABSOLUTE MONOCYTES (AUTO) 0.2 10^3/uL (0.1-1.4); BASOPHILS % (AUTO) 0.4 % (0-2); EOSINOPHILS % (AUTO) 0.1 % (0-6); HEMATOCRIT 40.4 % (37.9-51.0); HEMOGLOBIN 14.5 g/dL (13.5-17.0); LYMPHOCYTES % (AUTO) 17.2 % (13-45); MEAN CORPUSCULAR HEMOGLOBIN 33.9 pg (27.0-33.4); MEAN CORPUSCULAR HGB CONC 35.8 g/dL (32.0-36.0); MEAN CORPUSCULAR VOLUME 95 fl (80-97); MONOCYTES % (AUTO) 6.1 % (3-13); PLATELET COUNT 183 10^3/uL (150-450); RED BLOOD COUNT 4.26 10^6/uL (4.35-5.55); RED CELL DISTRIBUTION WIDTH 12.8 % (11.5-14.0); SEGMENTED NEUTROPHILS % (AUTO) 76.2 % (42-78); TOTAL CELLS COUNTED % (AUTO) 100 %; WHITE BLOOD COUNT 3.9 10^3/uL (4.0-10.5)
[2019-12-21 05:35] LABS: ALBUMIN 3.6 g/dL (3.5-5.0); ALKALINE PHOSPHATASE 89 U/L (38-126); ANION GAP 11 (5-19); ASPARTATE AMINO TRANSFERASE 55 U/L (17-59); BILIRUBIN,DIRECT 0.4 mg/dL (0.0-0.4); BILIRUBIN,TOTAL 0.7 mg/dL (0.2-1.3); BLOOD UREA NITROGEN 16 mg/dL (7-20); CALCIUM 8.5 mg/dL (8.4-10.2); CARBON DIOXIDE 30 mmol/L (22-30); CHLORIDE 88 mmol/L (98-107); GLUCOSE 196 mg/dL (75-110); POTASSIUM 4.1 mmol/L (3.6-5.0); TOTAL PROTEIN 7.1 g/dL (6.3-8.2)
[2019-12-21] MEDS ORDERED: INFLUENZA QUAD (6MOS+) 2020-21 VAC 0.5 ML SYR IM ONE (08:00)
[2019-12-21] MEDS ORDERED: HYDROCHLOROTHIAZIDE 25 MG TABLET PO SCH (08:00)
[2019-12-21] MEDS: METOPROLOL TARTRATE 50 MG TABLET PO SCH (09:54)
[2019-12-21] MEDS: METHADONE HCL 10 MG TABLET PO SCH ×4 (09:55→23:33)
[2019-12-21] MEDS: CHOLECALCIFEROL (D3) 400 UNIT TABLET PO SCH (09:55)
[2019-12-21] MEDS: AMLODIPINE BESYLATE 10 MG TABLET PO SCH (09:55)
[2019-12-21] MEDS: ZINC SULFATE 220 MG CAPSULE PO SCH (09:55)
[2019-12-21] MEDS: ASCORBIC ACID 500 MG TABLET PO SCH ×2 (09:55→18:05)
[2019-12-21] MEDS: ASPIRIN 81 MG TABLET, CHEWABLE PO SCH (09:56)
[2019-12-21] MEDS: ENOXAPARIN SODIUM INJ 40 MG/0.4 ML DISP.SYRIN SUBCUT SCH (09:56)
[2019-12-21] MEDS ORDERED: (PENDING PHARMACY ID) (Dextroamphetamine/Amphetamine [Adderall 20 Mg Tablet] 20 MG) PO SCH (10:00)
--- NOTE | 2019-12-21 15:11 | PDOC PROGRESS REPORT ---
Subjective Progress Note for:: 12/21/19 Subjective:: As per admitting physician CARLOS CARDONA is a 63 year old male, past medical history of hypertension, chronic low back pain on methadone, who came in the ED today due to shortness of breath. He started to experience generalized body malaise 1 week prior to admission. He consulted his primary care via telemedicine and he was told to get a Covid test. Covid test was done December 13 and the next day came back positive. He continued to have generaliz ed body malaise with easy fatigability and low-grade fevers at home. 1 day prior to admission he started to experience shortness of breath and dyspnea on exertion. He had a portable pulse ox monitor which notes that his saturation is between 85 and 88%. In the emergency room blood pressure 133/75, heart rate 77, respiratory rate 21, O2 sat 81% on room air which improved to 95% on 2 L of nasal cannula. Chest x- ray was negative, CT chest showed multifocal pneumonia. Service was called to admit the patient for management of acute hypoxemic respiratory failure secondary to Covid pneumonia. 12/21/2019. No acute events overnight. Patient comfortably said no apparent distress, oxygen requirement is trending down, currently on 2 L with SPO2 WNL, overall patient is reporting improvement of his symptoms, denies any fever, chills, nausea, vomiting, diarrhea, constipation or any urinary symptoms. Reason For Visit: ACUTE HYPOXIC RESPIRATORY FAILURE,COVID 19 Physical Exam Vital Signs: Temp Pulse Resp BP Pulse Ox 97.7 F 69 18 114/68 90 L 12/21/19 08:57 12/21/19 08:57 12/21/19 08:57 12/21/19 08:57 12/21/19 08:57 Intake & Output 12/20/19 12/21/19 12/22/19 06:59 06:59 06:59 Intake Total 1627 Output Total 650 Balance 977 Weight 122.379 kg General appearance: PRESENT: no acute distress, obese Head exam: PRESENT: atraumatic, normocephalic Respiratory exam: PRESENT: clear to auscultation zhanna. ABSENT: rales, rhonchi, wheezes Cardiovascular exam: PRESENT: RRR. ABSENT: diastolic murmur, rubs, systolic murmur GI/Abdominal exam: PRESENT: normal bowel sounds, soft. ABSENT: distended, guarding, mass, organolmegaly, rebound, tenderness Neurological exam: PRESENT: alert, awake, oriented to person, oriented to place, oriented to time, oriented to situation, CN II-XII grossly intact. ABSENT: motor sensory deficit Results Laboratory Results: 12/21/19 04:40 12/21/19 04:40 12/20/19 12/20/19 12/21/19 18:00 18:00 04:40 WBC 3.9 L RBC 4.26 L Hgb 14.5 Hct 40.4 MCV 95 MCH 33.9 H MCHC 35.8 RDW 12.8 Plt Count 183 Seg Neutrophils % 76.2 Sodium Potassium Chloride Carbon Dioxide Anion Gap BUN Creatinine Est GFR ( Amer) Glucose Calcium Ferritin 238.00 Total Bilirubin AST Alkaline Phosphatase C-Reactive Protein 85.9 H Total Protein Albumin Blood Type O POSITIVE 12/21/19 04:40 WBC RBC Hgb Hct MCV MCH MCHC RDW Plt Count Seg Neutrophils % Sodium 128.5 L Potassium 4.1 Chloride 88 L Carbon Dioxide 30 Anion Gap 11 BUN 16 Creatinine 0.84 Est GFR ( Amer) > 60 Glucose 196 H Calcium 8.5 Ferritin Total Bilirubin 0.7 AST 55 Alkaline Phosphatase 89 C-Reactive Protein Total Protein 7.1 Albumin 3.6 Blood Type 12/20/19 12/20/19 12/20/19 07:11 13:56 18:00 Troponin I < 0.012 < 0.012 < 0.012 NT-Pro-B Natriuret Pep 273 H Impressions: Chest X-Ray 12/20/19 07:21 IMPRESSION: Low lung volumes without other evidence of acute intrathoracic process. Chest/Abdomen CTA 12/20/19 09:49 IMPRESSION: 1. No central or segmental pulmonary embolus. 2. Multifocal mixed interstitial and airspace opacities consistent with multi lobar pneumonia. Recommend consideration for atypical organisms (to include viral) in treatment planning. 3. Chronic and incidental findings to include hydropic gallbladder with cholelithiasis, hepatic steatosis, lap band, gynecomastia. Assessment and Plan - Diagnosis (1) Acute respiratory failure with hypoxia Is this a current diagnosis for this admission?: Yes Plan: Improving. Secondary to Covid pneumonia. Patient had a positive result at Dr. Garcia's office Friday last week SPO2 WNL on 2 L nasal cannula. Chest x-ray on admission negative. CRP, ferritin, D-dimer mildly elevated on admission. CT chest on admission showed multifocal pneumonia, no pulmonary embolism. Day 1 IV azithromycin. Day 2 IV remdesivir. Day 2 p.o. dexamethasone. Pending effervescent plasma transfusion. Continue empiric IV antibiotics, antivirals, steroids, vitamin D, zinc, p.o. antibiotics, as needed duo nebs, as needed BiPAP, incentive spirometry, flutter valve, pulmonary toileting. As per admitting physician CODE STATUS DO NOT RESUSCITATE in the event of cardiac arrest. However patient is okay to be intubated for acute hypoxic respiratory failure (2) Pneumonia due to 2019 novel coronavirus Is this a current diagnosis for this admission?: Yes Plan: Plan as per #1. (3) Alcohol dependence Qualifiers: Substance use status: unspecified alcohol-induced disorder Qualified Code(s): F10.29 - Alcohol dependence with unspecified alcohol-induced disorder Is this a current diagnosis for this admission?: Yes Plan: Alert and oriented x4. No symptoms of alcohol withdrawal. Patient admits to drinking every day half a pint of vodka Last drink 1 day prior to admission 2 shots of vodka Continue as needed Ativan, folic acid, thiamine, DT precautions. (4) Diabetes mellitus type 2 in obese Is this a current diagnosis for this admission?: Yes Plan: -Not on any medications -We will check A1c (5) Hypokalemia Is this a current diagnosis for this admission?: Yes Plan: Resolved. Monitor potassium level. Hypokalemia protocol. (6) Hyponatremia Is this a current diagnosis for this admission?: Yes Plan: Acute euvolemic hyponatremia. Likely due to COVID-19 infection complicated by HCTZ. Received 2 L of NS on admission. Asymptomatic. Monitor sodium level, DC HCTZ, seizure precautions. BMP tomorrow. (7) OLE (obstructive sleep apnea) Is this a current diagnosis for this admission?: Yes Plan: CPAP at night. setting 12 CPAP ordered nightly (8) Chronic prescription opiate use Is this a current diagnosis for this admission?: Yes Plan: -Back pain on methadone 10 mg [address] Garcia prescribes his opioid in the outpatient. Unable to verify because patient came in after office hours please verify dose (9) HTN (hypertension) Qualifiers: Hypertension type: essential hypertension Qualified Code(s): I10 - Essential (primary) hypertension Is this a current diagnosis for this admission?: Yes Plan: Euvolemic. Normotensive. Medications are hydrochlorothiazide, amlodipine, metoprolol Hold HCTZ due to electrolyte abnormalities. Continue amlodipine, continue metoprolol. As needed IV hydralazine and metoprolol. - Time Time Spent with patient: 25-34 minutes Medications reviewed and adjusted accordingly: Yes Anticipated Discharge Disposition: Home, Self Care Anticipated Discharge Timeframe: within 72 hours
[2019-12-21] MEDS ORDERED: AZITHROMYCIN 500 MG in DEXTROSE 5%-WATER 250 ML IV SCH (17:00)
[2019-12-21] MEDS: DEXAMETHASONE SOD PHOS INJ 10 MG/1 ML VIAL IV SCH (18:06)
[2019-12-21] MEDS: AZITHROMYCIN 500 MG in DEXTROSE 5%-WATER 250 ML IV SCH (20:45)
[2019-12-21] MEDS: REMDESIVIR (EUA) 100 MG in NORMAL SALINE 250 ML IV SCH (23:33)
[2019-12-21] MEDS: ALPRAZOLAM 0.5 MG TABLET PO SCH (23:33)
[2019-12-22 05:39] LABS: ABSOLUTE LYMPHOCYTES (AUTO) 0.8 10^3/uL (0.5-4.7); ABSOLUTE MONOCYTES (AUTO) 0.4 10^3/uL (0.1-1.4); ABSOLUTE NEUT (AUTO) 3.6 10^3/uL (1.7-8.2); BASOPHILS % (AUTO) 0.4 % (0-2); EOSINOPHILS % (AUTO) 0.1 % (0-6); HEMATOCRIT 41.2 % (37.9-51.0); LYMPHOCYTES % (AUTO) 16.7 % (13-45); MEAN CORPUSCULAR HEMOGLOBIN 34.3 pg (27.0-33.4); MEAN CORPUSCULAR HGB CONC 36.4 g/dL (32.0-36.0); MEAN CORPUSCULAR VOLUME 94 fl (80-97); MONOCYTES % (AUTO) 8.8 % (3-13); PLATELET COUNT 215 10^3/uL (150-450); RED BLOOD COUNT 4.37 10^6/uL (4.35-5.55); RED CELL DISTRIBUTION WIDTH 12.9 % (11.5-14.0); TOTAL CELLS COUNTED % (AUTO) 100 %; WHITE BLOOD COUNT 4.8 10^3/uL (4.0-10.5)
[2019-12-22 05:42] LABS: INTERNATIONAL RATION (INR) 1.02; PROTHROMBIN TIME 13.6 SEC (11.4-15.4)
[2019-12-22 06:04] LABS: ALBUMIN 3.9 g/dL (3.5-5.0); ALKALINE PHOSPHATASE 85 U/L (38-126); ANION GAP 9 (5-19); ASPARTATE AMINO TRANSFERASE 46 U/L (17-59); BILIRUBIN,DIRECT 0.4 mg/dL (0.0-0.4); BILIRUBIN,TOTAL 0.5 mg/dL (0.2-1.3); BLOOD UREA NITROGEN 17 mg/dL (7-20); CALCIUM 8.9 mg/dL (8.4-10.2); CARBON DIOXIDE 32 mmol/L (22-30); CHLORIDE 91 mmol/L (98-107); GLUCOSE 198 mg/dL (75-110); POTASSIUM 3.8 mmol/L (3.6-5.0)
[2019-12-22] MEDS: CHOLECALCIFEROL (D3) 400 UNIT TABLET PO SCH (10:49)
[2019-12-22] MEDS: METOPROLOL TARTRATE 50 MG TABLET PO SCH (10:49)
[2019-12-22] MEDS: METHADONE HCL 10 MG TABLET PO SCH ×4 (10:49→21:30)
[2019-12-22] MEDS: ZINC SULFATE 220 MG CAPSULE PO SCH (10:49)
[2019-12-22] MEDS: ASPIRIN 81 MG TABLET, CHEWABLE PO SCH (10:49)
[2019-12-22] MEDS: ASCORBIC ACID 500 MG TABLET PO SCH ×2 (10:50→17:59)
[2019-12-22] MEDS: ENOXAPARIN SODIUM INJ 40 MG/0.4 ML DISP.SYRIN SUBCUT SCH (10:51)
[2019-12-22] MEDS: AMLODIPINE BESYLATE 10 MG TABLET PO SCH (10:51)
--- NOTE | 2019-12-22 12:19 | PDOC PROGRESS REPORT ---
Subjective Progress Note for:: 12/22/19 Subjective:: As per admitting physician CARLOS CARDONA is a 63 year old male, past medical history of hypertension, chronic low back pain on methadone, who came in the ED today due to shortness of breath. He started to experience generalized body malaise 1 week prior to admission. He consulted his primary care via telemedicine and he was told to get a Covid test. Covid test was done December 13 and the next day came back positive. He continued to have generaliz ed body malaise with easy fatigability and low-grade fevers at home. 1 day prior to admission he started to experience shortness of breath and dyspnea on exertion. He had a portable pulse ox monitor which notes that his saturation is between 85 and 88%. In the emergency room blood pressure 133/75, heart rate 77, respiratory rate 21, O2 sat 81% on room air which improved to 95% on 2 L of nasal cannula. Chest x- ray was negative, CT chest showed multifocal pneumonia. Service was called to admit the patient for management of acute hypoxemic respiratory failure secondary to Covid pneumonia. 12/21/2019. No acute events overnight. Patient comfortably said no apparent distress, oxygen requirement is trending down, currently on 2 L with SPO2 WNL, overall patient is reporting improvement of his symptoms, denies any fever, chills, nausea, vomiting, diarrhea, constipation or any urinary symptoms. 12/22/2019. No acute events overnight. Patient's oxygen demand is improving, currently SPO2 WNL on 1 L nasal cannula, WBC WNL, afebrile, does not seem to be in any apparent distress, denies any fever, chills, nausea, vomiting, diarrhea, constipation or any urinary symptoms. Possible discharge home after he receives his fourth dose of remdesivir. Reason For Visit: ACUTE HYPOXIC RESPIRATORY FAILURE,COVID 19 Physical Exam Vital Signs: Temp Pulse Resp BP Pulse Ox 97.7 F 59 L 17 128/72 H 96 12/22/19 00:00 12/22/19 07:56 12/22/19 07:56 12/22/19 07:56 12/22/19 07:56 Intake & Output 12/21/19 12/22/19 12/23/19 06:59 06:59 06:59 Intake Total 1627 2436 Output Total 650 3060 Balance 977 -624 Weight 122.379 kg 123.5 kg General appearance: PRESENT: no acute distress, well-developed, well-nourished Head exam: PRESENT: atraumatic, normocephalic Respiratory exam: PRESENT: clear to auscultation zhanna. ABSENT: rales, rhonchi, wheezes Cardiovascular exam: PRESENT: RRR. ABSENT: diastolic murmur, rubs, systolic murmur GI/Abdominal exam: PRESENT: normal bowel sounds, soft. ABSENT: distended, guarding, mass, organolmegaly, rebound, tenderness Neurological exam: PRESENT: alert, awake, oriented to person, oriented to place, oriented to time, oriented to situation, CN II-XII grossly intact. ABSENT: motor sensory deficit Results Laboratory Results: 12/22/19 04:35 12/22/19 04:35 12/20/19 12/22/19 12/22/19 18:00 04:35 04:35 WBC 4.8 RBC 4.37 Hgb 15.0 Hct 41.2 MCV 94 MCH 34.3 H MCHC 36.4 H RDW 12.9 Plt Count 215 Seg Neutrophils % 74.0 Sodium 131.8 L Potassium 3.8 Chloride 91 L Carbon Dioxide 32 H Anion Gap 9 BUN 17 Creatinine 0.76 Est GFR ( Amer) > 60 Glucose 198 H Calcium 8.9 Total Bilirubin 0.5 AST 46 Alkaline Phosphatase 85 Total Protein 8.0 Albumin 3.9 Blood Type O POSITIVE 12/20/19 12/20/19 12/20/19 07:11 13:56 18:00 Troponin I < 0.012 < 0.012 < 0.012 NT-Pro-B Natriuret Pep 273 H Impressions: Chest X-Ray 12/20/19 07:21 IMPRESSION: Low lung volumes without other evidence of acute intrathoracic process. Chest/Abdomen CTA 12/20/19 09:49 IMPRESSION: 1. No central or segmental pulmonary embolus. 2. Multifocal mixed interstitial and airspace opacities consistent with multi lobar pneumonia. Recommend consideration for atypical organisms (to include viral) in treatment planning. 3. Chronic and incidental findings to include hydropic gallbladder with cholelithiasis, hepatic steatosis, lap band, gynecomastia. Assessment and Plan - Diagnosis (1) Acute respiratory failure with hypoxia Is this a current diagnosis for this admission?: Yes Plan: Moderate improvement. SPO2 WNL on 1 L nasal cannula. Secondary to Covid pneumonia. Patient had a positive result at Dr. Garcia's office Friday last week Chest x-ray on admission negative. CRP, ferritin, D-dimer mildly elevated on admission. CT chest on admission showed multifocal pneumonia, no pulmonary embolism. Day 2 IV azithromycin. Day 2 IV remdesivir. Day 2 p.o. dexamethasone. Status post effervescent plasma transfusion. Continue empiric IV antibiotics, antivirals, steroids, vitamin D, zinc, p.o. antibiotics, as needed duo nebs, as needed BiPAP, incentive spirometry, flutter valve, pulmonary toileting. As per admitting physician CODE STATUS DO NOT RESUSCITATE in the event of cardiac arrest. However patient is okay to be intubated for acute hypoxic respiratory failure (2) Pneumonia due to 2019 novel coronavirus Is this a current diagnosis for this admission?: Yes Plan: Plan as per #1. (3) Alcohol dependence Qualifiers: Substance use status: unspecified alcohol-induced disorder Qualified Code(s): F10.29 - Alcohol dependence with unspecified alcohol-induced disorder Is this a current diagnosis for this admission?: Yes Plan: Alert and oriented x4. No symptoms of alcohol withdrawal. Patient admits to drinking every day half a pint of vodka Last drink 1 day prior to admission 2 shots of vodka Continue as needed Ativan, folic acid, thiamine, DT precautions. (4) Diabetes mellitus type 2 in obese Is this a current diagnosis for this admission?: Yes Plan: Controlled with diet. Hemoglobin A1c 4.9. (5) Hypokalemia Is this a current diagnosis for this admission?: Yes Plan: Resolved. Monitor potassium level. Hypokalemia protocol. (6) Hyponatremia Is this a current diagnosis for this admission?: Yes Plan: Improving. Acute euvolemic hyponatremia. Likely due to COVID-19 infection complicated by HCTZ. Received 2 L of NS on admission. Asymptomatic. Monitor sodium level, DC HCTZ, seizure precautions. BMP tomorrow. (7) OLE (obstructive sleep apnea) Is this a current diagnosis for this admission?: Yes Plan: CPAP at night. setting 12 CPAP ordered nightly (8) Chronic prescription opiate use Is this a current diagnosis for this admission?: Yes Plan: -Back pain on methadone 10 mg [address] Garcia prescribes his opioid in the outpatient. Unable to verify because patient came in after office hours please verify dose (9) HTN (hypertension) Qualifiers: Hypertension type: essential hypertension Qualified Code(s): I10 - Essential (primary) hypertension Is this a current diagnosis for this admission?: Yes Plan: Euvolemic. Normotensive. Medications are hydrochlorothiazide, amlodipine, metoprolol Hold HCTZ due to electrolyte abnormalities. Continue amlodipine, continue metoprolol. As needed IV hydralazine and metoprolol. - Time Time Spent with patient: 25-34 minutes Medications reviewed and adjusted accordingly: Yes Anticipated Discharge Disposition: Home, Self Care Anticipated Discharge Timeframe: within 72 hours
[2019-12-22] MEDS: DEXAMETHASONE SOD PHOS INJ 10 MG/1 ML VIAL IV SCH (17:59)
[2019-12-22] MEDS: AZITHROMYCIN 500 MG in DEXTROSE 5%-WATER 250 ML IV SCH (18:00)
[2019-12-22] MEDS: REMDESIVIR (EUA) 100 MG in NORMAL SALINE 250 ML IV SCH (21:28)
[2019-12-22] MEDS: ALPRAZOLAM 0.5 MG TABLET PO SCH (21:30)
[2019-12-23 05:39] LABS: HEMATOCRIT 40.5 % (37.9-51.0); HEMOGLOBIN 14.3 g/dL (13.5-17.0); MEAN CORPUSCULAR HEMOGLOBIN 33.9 pg (27.0-33.4); MEAN CORPUSCULAR HGB CONC 35.4 g/dL (32.0-36.0); MEAN CORPUSCULAR VOLUME 96 fl (80-97); PLATELET COUNT 232 10^3/uL (150-450); RED BLOOD COUNT 4.23 10^6/uL (4.35-5.55); RED CELL DISTRIBUTION WIDTH 12.9 % (11.5-14.0); WHITE BLOOD COUNT 6.6 10^3/uL (4.0-10.5)
[2019-12-23 06:07] LABS: ALBUMIN 3.5 g/dL (3.5-5.0); ALKALINE PHOSPHATASE 71 U/L (38-126); ANION GAP 9 (5-19); ASPARTATE AMINO TRANSFERASE 43 U/L (17-59); BILIRUBIN,DIRECT 0.4 mg/dL (0.0-0.4); BILIRUBIN,TOTAL 0.6 mg/dL (0.2-1.3); BLOOD UREA NITROGEN 23 mg/dL (7-20); CALCIUM 8.9 mg/dL (8.4-10.2); CARBON DIOXIDE 29 mmol/L (22-30); CHLORIDE 97 mmol/L (98-107); GLUCOSE 182 mg/dL (75-110); POTASSIUM 4.2 mmol/L (3.6-5.0); TOTAL PROTEIN 6.9 g/dL (6.3-8.2)
--- NOTE | 2019-12-23 09:23 | PDOC PROGRESS REPORT ---
Subjective Progress Note for:: 12/23/19 Subjective:: As per admitting physician CARLOS CARDONA is a 63 year old male, past medical history of hypertension, chronic low back pain on methadone, who came in the ED today due to shortness of breath. He started to experience generalized body malaise 1 week prior to admission. He consulted his primary care via telemedicine and he was told to get a Covid test. Covid test was done December 13 and the next day came back positive. He continued to have generaliz ed body malaise with easy fatigability and low-grade fevers at home. 1 day prior to admission he started to experience shortness of breath and dyspnea on exertion. He had a portable pulse ox monitor which notes that his saturation is between 85 and 88%. In the emergency room blood pressure 133/75, heart rate 77, respiratory rate 21, O2 sat 81% on room air which improved to 95% on 2 L of nasal cannula. Chest x- ray was negative, CT chest showed multifocal pneumonia. Service was called to admit the patient for management of acute hypoxemic respiratory failure secondary to Covid pneumonia. 12/21/2019. No acute events overnight. Patient comfortably said no apparent distress, oxygen requirement is trending down, currently on 2 L with SPO2 WNL, overall patient is reporting improvement of his symptoms, denies any fever, chills, nausea, vomiting, diarrhea, constipation or any urinary symptoms. 12/23/2019. No acute events overnight. Patient is saturating WNL on RA, sitting at the edge of the bed enjoying his breakfast, denies any fever, chills, nausea, vomiting, diarrhea, constipation or any urinary symptoms. P.o. tolerant, having normal bowel and bladder movements, cooperative with physical examination, pending last dosage of remdesivir tomorrow, possible discharge home tomorrow afternoon. Reason For Visit: ACUTE HYPOXIC RESPIRATORY FAILURE,COVID 19 Physical Exam Vital Signs: Temp Pulse Resp BP Pulse Ox 97.5 F 55 L 18 121/73 90 L 12/23/19 07:56 12/23/19 07:56 12/23/19 07:56 12/23/19 07:56 12/23/19 07:56 Intake & Output 12/22/19 12/23/19 12/24/19 06:59 06:59 06:59 Intake Total 2436 1454 Output Total 3060 3450 -624 Weight 123.5 kg 121.8 kg Results Laboratory Results: 12/23/19 04:59 12/23/19 04:59 12/23/19 12/23/19 04:59 04:59 WBC 6.6 RBC 4.23 L Hgb 14.3 Hct 40.5 MCV 96 MCH 33.9 H MCHC 35.4 RDW 12.9 Plt Count 232 Sodium 135.2 L Potassium 4.2 Chloride 97 L Carbon Dioxide 29 Anion Gap 9 BUN 23 H Creatinine 0.78 Est GFR ( Amer) > 60 Glucose 182 H Calcium 8.9 Magnesium 2.2 Total Bilirubin 0.6 AST 43 Alkaline Phosphatase 71 Total Protein 6.9 Albumin 3.5 12/20/19 12/20/19 12/20/19 07:11 13:56 18:00 Troponin I < 0.012 < 0.012 < 0.012 NT-Pro-B Natriuret Pep 273 H Impressions: Chest X-Ray 12/20/19 07:21 IMPRESSION: Low lung volumes without other evidence of acute intrathoracic process. Chest/Abdomen CTA 12/20/19 09:49 IMPRESSION: 1. No central or segmental pulmonary embolus. 2. Multifocal mixed interstitial and airspace opacities consistent with multi lobar pneumonia. Recommend consideration for atypical organisms (to include viral) in treatment planning. 3. Chronic and incidental findings to include hydropic gallbladder with cholelithiasis, hepatic steatosis, lap band, gynecomastia. Assessment and Plan - Diagnosis (1) Acute respiratory failure with hypoxia Is this a current diagnosis for this admission?: Yes (2) Pneumonia due to 2019 novel coronavirus Is this a current diagnosis for this admission?: Yes (3) Alcohol dependence Qualifiers: Substance use status: unspecified alcohol-induced disorder Qualified Code(s): F10.29 - Alcohol dependence with unspecified alcohol-induced disorder Is this a current diagnosis for this admission?: Yes (4) Diabetes mellitus type 2 in obese Is this a current diagnosis for this admission?: Yes (5) Hypokalemia Is this a current diagnosis for this admission?: Yes (6) Hyponatremia Is this a current diagnosis for this admission?: Yes (7) OLE (obstructive sleep apnea) Is this a current diagnosis for this admission?: Yes (8) Chronic prescription opiate use Is this a current diagnosis for this admission?: Yes (9) HTN (hypertension) Qualifiers: Hypertension type: essential hypertension Qualified Code(s): I10 - Essential (primary) hypertension Is this a current diagnosis for this admission?: Yes
--- NOTE | 2019-12-23 09:34 | PDOC PROGRESS REPORT ---
Subjective Progress Note for:: 12/23/19 Subjective:: As per admitting physician CARLOS CARDONA is a 63 year old male, past medical history of hypertension, chronic low back pain on methadone, who came in the ED today due to shortness of breath. He started to experience generalized body malaise 1 week prior to admission. He consulted his primary care via telemedicine and he was told to get a Covid test. Covid test was done December 13 and the next day came back positive. He continued to have generaliz ed body malaise with easy fatigability and low-grade fevers at home. 1 day prior to admission he started to experience shortness of breath and dyspnea on exertion. He had a portable pulse ox monitor which notes that his saturation is between 85 and 88%. In the emergency room blood pressure 133/75, heart rate 77, respiratory rate 21, O2 sat 81% on room air which improved to 95% on 2 L of nasal cannula. Chest x- ray was negative, CT chest showed multifocal pneumonia. Service was called to admit the patient for management of acute hypoxemic respiratory failure secondary to Covid pneumonia. 12/21/2019. No acute events overnight. Patient comfortably said no apparent distress, oxygen requirement is trending down, currently on 2 L with SPO2 WNL, overall patient is reporting improvement of his symptoms, denies any fever, chills, nausea, vomiting, diarrhea, constipation or any urinary symptoms. 12/22/2019. No acute events overnight. Patient's oxygen demand is improving, currently SPO2 WNL on 1 L nasal cannula, WBC WNL, afebrile, does not seem to be in any apparent distress, denies any fever, chills, nausea, vomiting, diarrhea, constipation or any urinary symptoms. Possible discharge home after he receives his fourth dose of remdesivir. 12/23/2019. No acute events overnight. On room air WNL saturation, currently receiving apparent rest, denies any fever, chills, nausea, vomiting, diarrhea, constipation or any urinary symptoms. Possible discharge home tomorrow. Reason For Visit: ACUTE HYPOXIC RESPIRATORY FAILURE,COVID 19 Physical Exam Vital Signs: Temp Pulse Resp BP Pulse Ox 97.5 F 55 L 18 121/73 90 L 12/23/19 07:56 12/23/19 07:56 12/23/19 07:56 12/23/19 07:56 12/23/19 07:56 Intake & Output 12/22/19 12/23/19 12/24/19 06:59 06:59 06:59 Intake Total 2436 1454 Output Total 3067 5329 - Weight 123.5 kg 121.8 kg General appearance: PRESENT: obese Head exam: PRESENT: atraumatic, normocephalic Neck exam: ABSENT: carotid bruit, JVD, lymphadenopathy, thyromegaly Respiratory exam: PRESENT: clear to auscultation zhanna. ABSENT: rales, rhonchi, wheezes Cardiovascular exam: PRESENT: RRR. ABSENT: diastolic murmur, rubs, systolic murmur GI/Abdominal exam: PRESENT: normal bowel sounds, soft. ABSENT: distended, guarding, mass, organolmegaly, rebound, tenderness Neurological exam: PRESENT: alert, awake, oriented to person, oriented to place, oriented to time, oriented to situation, CN II-XII grossly intact. ABSENT: motor sensory deficit Results Laboratory Results: 12/23/19 04:59 12/23/19 04:59 12/23/19 12/23/19 04:59 04:59 WBC 6.6 RBC 4.23 L Hgb 14.3 Hct 40.5 MCV 96 MCH 33.9 H MCHC 35.4 RDW 12.9 Plt Count 232 Sodium 135.2 L Potassium 4.2 Chloride 97 L Carbon Dioxide 29 Anion Gap 9 BUN 23 H Creatinine 0.78 Est GFR ( Amer) > 60 Glucose 182 H Calcium 8.9 Magnesium 2.2 Total Bilirubin 0.6 AST 43 Alkaline Phosphatase 71 Total Protein 6.9 Albumin 3.5 12/20/19 12/20/19 12/20/19 07:11 13:56 18:00 Troponin I < 0.012 < 0.012 < 0.012 NT-Pro-B Natriuret Pep 273 H Impressions: Chest X-Ray 12/20/19 07:21 IMPRESSION: Low lung volumes without other evidence of acute intrathoracic process. Chest/Abdomen CTA 12/20/19 09:49 IMPRESSION: 1. No central or segmental pulmonary embolus. 2. Multifocal mixed interstitial and airspace opacities consistent with multi lobar pneumonia. Recommend consideration for atypical organisms (to include viral) in treatment planning. 3. Chronic and incidental findings to include hydropic gallbladder with cholelithiasis, hepatic steatosis, lap band, gynecomastia. Assessment and Plan - Diagnosis (1) Acute respiratory failure with hypoxia Is this a current diagnosis for this admission?: Yes Plan: Improving. Secondary to Covid pneumonia. Patient had a positive result at Dr. Garcia's office Friday last week SPO2 WNL on 2 L nasal cannula. Chest x-ray on admission negative. CRP, ferritin, D-dimer mildly elevated on admission. CT chest on admission showed multifocal pneumonia, no pulmonary embolism. Day 2 IV azithromycin. Day 3 IV remdesivir. Day 3 p.o. dexamethasone. Status post effervescent plasma transfusion. Continue empiric IV antibiotics, antivirals, steroids, vitamin D, zinc, p.o. antibiotics, as needed duo nebs, as needed BiPAP, incentive spirometry, flutter valve, pulmonary toileting. As per admitting physician CODE STATUS DO NOT RESUSCITATE in the event of cardiac arrest. However patient is okay to be intubated for acute hypoxic respiratory failure (2) Pneumonia due to 2019 novel coronavirus Is this a current diagnosis for this admission?: Yes Plan: Plan as per #1. (3) Alcohol dependence Qualifiers: Substance use status: unspecified alcohol-induced disorder Qualified Code(s): F10.29 - Alcohol dependence with unspecified alcohol-induced disorder Is this a current diagnosis for this admission?: Yes Plan: Alert and oriented x4. No symptoms of alcohol withdrawal. Patient admits to drinking every day half a pint of vodka Last drink 1 day prior to admission 2 shots of vodka Continue as needed Ativan, folic acid, thiamine, DT precautions. (4) Diabetes mellitus type 2 in obese Is this a current diagnosis for this admission?: Yes Plan: Diet controlled. Not on any medication. Hemoglobin A1c 4.9. (5) Hypokalemia Is this a current diagnosis for this admission?: Yes Plan: Resolved. Monitor potassium level. Hypokalemia protocol. (6) Hyponatremia Is this a current diagnosis for this admission?: Yes Plan: Acute euvolemic hyponatremia. Likely due to COVID-19 infection complicated by HCTZ. Received 2 L of NS on admission. Asymptomatic. Monitor sodium level, DC HCTZ, seizure precautions. BMP tomorrow. (7) OLE (obstructive sleep apnea) Is this a current diagnosis for this admission?: Yes Plan: CPAP at night. setting 12 CPAP ordered nightly (8) Chronic prescription opiate use Is this a current diagnosis for this admission?: Yes Plan: -Back pain on methadone 10 mg [address] Garcia prescribes his opioid in the outpatient. Unable to verify because patient came in after office hours please verify dose (9) HTN (hypertension) Qualifiers: Hypertension type: essential hypertension Qualified Code(s): I10 - Essential (primary) hypertension Is this a current diagnosis for this admission?: Yes Plan: Euvolemic. Normotensive. Medications are hydrochlorothiazide, amlodipine, metoprolol Hold HCTZ due to electrolyte abnormalities. Continue amlodipine, continue metoprolol. As needed IV hydralazine and metoprolol. - Time Time Spent with patient: 25-34 minutes Smoking Cessation Education: 3 to 10 minutes Medications reviewed and adjusted accordingly: Yes Anticipated Discharge Disposition: Home, Self Care Anticipated Discharge Timeframe: within 24 hours
[2019-12-23] MEDS: ASPIRIN 81 MG TABLET, CHEWABLE PO SCH (10:11)
[2019-12-23] MEDS: METHADONE HCL 10 MG TABLET PO SCH ×4 (10:11→21:55)
[2019-12-23] MEDS: LISINOPRIL 10 MG TABLET PO SCH (10:11)
[2019-12-23] MEDS: ZINC SULFATE 220 MG CAPSULE PO SCH (10:11)
[2019-12-23] MEDS: ENOXAPARIN SODIUM INJ 40 MG/0.4 ML DISP.SYRIN SUBCUT SCH (10:12)
[2019-12-23] MEDS: ASCORBIC ACID 500 MG TABLET PO SCH ×2 (10:12→18:40)
[2019-12-23] MEDS: CHOLECALCIFEROL (D3) 400 UNIT TABLET PO SCH (10:12)
[2019-12-23] MEDS: AZITHROMYCIN 500 MG in DEXTROSE 5%-WATER 250 ML IV SCH (18:40)
[2019-12-23] MEDS: DEXAMETHASONE SOD PHOS INJ 10 MG/1 ML VIAL IV SCH (18:40)
[2019-12-23] MEDS: ALPRAZOLAM 0.5 MG TABLET PO SCH (21:55)
[2019-12-23] MEDS: REMDESIVIR (EUA) 100 MG in NORMAL SALINE 250 ML IV SCH (22:15)
[2019-12-24] MEDS: CHOLECALCIFEROL (D3) 400 UNIT TABLET PO SCH (09:22)
[2019-12-24] MEDS: ZINC SULFATE 220 MG CAPSULE PO SCH (09:22)
[2019-12-24] MEDS: METHADONE HCL 10 MG TABLET PO SCH (09:22)
[2019-12-24] MEDS: ASPIRIN 81 MG TABLET, CHEWABLE PO SCH (09:23)
[2019-12-24] MEDS: LISINOPRIL 10 MG TABLET PO SCH (09:23)
[2019-12-24] MEDS: ASCORBIC ACID 500 MG TABLET PO SCH (09:23)
[2019-12-24] MEDS: ENOXAPARIN SODIUM INJ 40 MG/0.4 ML DISP.SYRIN SUBCUT SCH (09:24)
[2019-12-24] MEDS ORDERED: AMLODIPINE BESYLATE 5 MG TABLET PO SCH (10:00)
[2019-12-24] MEDS ORDERED: REMDESIVIR (EUA) 100 MG in NORMAL SALINE 250 ML IV ONE (10:00)
--- NOTE | 2019-12-24 13:54 | PDOC DISCHARGE SUMMARY ---
Impression - Admit/DC Date/PCP Admission Date/Primary Care Provider: 12/20/19 15:39 SHAUNA GARCIA DO Discharge Date: 12/24/19 - Discharge Diagnosis (1) Acute respiratory failure with hypoxia Is this a current diagnosis for this admission?: Yes (2) Pneumonia due to 2019 novel coronavirus Is this a current diagnosis for this admission?: Yes (3) Alcohol dependence Is this a current diagnosis for this admission?: Yes (4) Diabetes mellitus type 2 in obese Is this a current diagnosis for this admission?: Yes (5) Hypokalemia Is this a current diagnosis for this admission?: Yes (6) Hyponatremia Is this a current diagnosis for this admission?: Yes (7) OLE (obstructive sleep apnea) Is this a current diagnosis for this admission?: Yes (8) Chronic prescription opiate use Is this a current diagnosis for this admission?: Yes (9) HTN (hypertension) Is this a current diagnosis for this admission?: Yes - Additional Information Resuscitation Status: Do Not Resuscitate Referrals: SHAUNA GARCIA DO [Primary Care Provider] - 12/30/19 4:00 pm Prescriptions: Amlodipine Besylate [Norvasc 5 mg Tablet] 5 mg PO DAILY 30 Days #30 tablet Lisinopril [Zestril] 20 mg PO DAILY 30 Days #30 tablet Home Medications: Amlodipine Besylate [Norvasc 10 mg Tablet] 10 mg PO DAILY 05/20/16 Aspirin [Aspirin 81 mg Chewable Tablet] 81 mg PO DAILY 05/20/16 Methadone HCl [Dolophine 10 mg Tablet] 20 mg PO Q8 05/20/16 Alprazolam [Xanax] 2 mg PO QHS 05/21/16 Dextroamphetamine/Amphetamine [Adderall 20 mg Tablet] 20 mg PO TID 05/21/16 Fluticasone Propionate [Flonase Nasal [place] 50 Mcg/[place] 16 gm] 2 spray NASL DAILY #1 spray.pump 05/24/16 Esomeprazole Mag Trihydrate [Nexium] 40 mg PO DAILY 30 Days #30 capsule.dr 12/19/18 Hydrocodone/Acetaminophen [[place] 10-325 Tablet] 1 each PO Q8HP PRN 12/20/19 Amlodipine Besylate [Norvasc 5 mg Tablet] 5 mg PO DAILY 30 Days #30 tablet 12/24/19 Lisinopril [Zestril] 20 mg PO DAILY 30 Days #30 tablet 12/24/19 History of Present Illiness History of Present Illness: As per admitting physician CARLOS CARDONA is a 63 year old male, past medical history of hypertension, chronic low back pain on methadone, who came in the ED today due to shortness of breath. He started to experience generalized body malaise 1 week prior to admission. He consulted his primary care via telemedicine and he was told to get a Covid test. Covid test was done December 13 and the next day came back positive. He continued to have generalized body malaise with easy fatigability and low-grade fevers at home. 1 day prior to admission he started to experience shortness of breath and dyspnea on exertion. He had a portable pulse ox monitor which notes that his saturation is between 85 and 88%. In the emergency room blood pressure 133/75, heart rate 77, respiratory rate 21, O2 sat 81% on room air which improved to 95% on 2 L of nasal cannula. Chest x- ray was negative, CT chest showed multifocal pneumonia. Service was called to admit the patient for management of acute hypoxemic respiratory failure secondary to Covid pneumonia. Hospital Course Hospital Course: (1) Acute respiratory failure with hypoxia Resolved. SPO2 WNL on RA. Secondary to Covid pneumonia. Patient had a positive result at Dr. Garcia's office Friday Chest x-ray on admission negative. CRP, ferritin, D-dimer mildly elevated on admission. CT chest on admission showed multifocal pneumonia, no pulmonary embolism. Received 3 days of IV azithromycin. Received 4 days of IV remdesivir. Received 4 days of p.o. dexamethasone. Received 1 unit of effervescent plasma transfusion. As per admitting physician CODE STATUS DO NOT RESUSCITATE in the event of cardiac arrest. However patient is okay to be intubated for acute hypoxic respiratory failure (2) Pneumonia due to 2019 novel coronavirus Plan as per #1. (3) Alcohol dependence Alert and oriented x4. No symptoms of alcohol withdrawal. Patient admits to drinking every day half a pint of vodka Last drink 1 day prior to admission 2 shots of vodka Continued as needed Ativan, folic acid, thiamine, DT precautions. (4) Diabetes mellitus type 2 in obese Diet controlled. Not on any medication. Hemoglobin A1c 4.9. (5) Hypokalemia Resolved. Monitor potassium level. Hypokalemia protocol. (6) Hyponatremia Resolved. Acute euvolemic hyponatremia. Likely due to COVID-19 infection complicated by HCTZ. Received 2 L of NS on admission. Asymptomatic. Monitor sodium level, DC HCTZ, seizure precautions. (7) OLE (obstructive sleep apnea) CPAP at night. setting 12 CPAP ordered nightly (8) Chronic prescription opiate use Back pain on methadone 10 mg [address] Garcia prescribes his opioid in the outpatient. Unable to verify because patient came in after office hours please verify dose (9) HTN (hypertension) Euvolemic. Normotensive. Medications are hydrochlorothiazide, amlodipine, metoprolol Metoprolol was DC'd as patient was noted to be bradycardic however not automatic. HCTZ was DC'd as patient was noted to be hyponatremic. Patient was switched to amlodipine and lisinopril. Patient was advised to follow-up with PCP for readjustment of his medication. Physical Exam Vital Signs: Temp Pulse Resp BP Pulse Ox 97.8 F 62 18 142/88 H 92 12/24/19 11:40 12/24/19 11:40 12/24/19 11:40 12/24/19 11:40 12/24/19 11:40 Intake & Output 12/23/19 12/24/19 12/25/19 06:59 06:59 06:59 Intake Total 1454 1593 250 Output Total 3450 3375 250 Weight 121.8 kg 121.8 kg General appearance: PRESENT: no acute distress, obese, well-developed, well- nourished Head exam: PRESENT: atraumatic, normocephalic Respiratory exam: PRESENT: clear to auscultation zhanna. ABSENT: rales, rhonchi, wheezes Cardiovascular exam: PRESENT: RRR. ABSENT: diastolic murmur, rubs, systolic murmur GI/Abdominal exam: PRESENT: normal bowel sounds, soft. ABSENT: distended, guarding, mass, organolmegaly, rebound, tenderness Neurological exam: PRESENT: alert, awake, oriented to person, oriented to place, oriented to time, oriented to situation, CN II-XII grossly intact. ABSENT: motor sensory deficit Skin exam: PRESENT: dry, intact, warm. ABSENT: cyanosis, rash Results Laboratory Results: WBC 6.6 10^3/uL (4.0-10.5) 12/23/19 04:59 RBC 4.23 10^6/uL (4.35-5.55) L 12/23/19 04:59 Hgb 14.3 g/dL (13.5-17.0) 12/23/19 04:59 Hct 40.5 % (37.9-51.0) 12/23/19 04:59 MCV 96 fl (80-97) 12/23/19 04:59 MCH 33.9 pg (27.0-33.4) H 12/23/19 04:59 MCHC 35.4 g/dL (32.0-36.0) 12/23/19 04:59 RDW 12.9 % (11.5-14.0) 12/23/19 04:59 Plt Count 232 10^3/uL (150-450) 12/23/19 04:59 Lymph % (Auto) 16.7 % (13-45) 12/22/19 04:35 [place] % (Auto) 8.8 % (3-13) 12/22/19 04:35 Eos % (Auto) 0.1 % (0-6) 12/22/19 04:35 Baso % (Auto) 0.4 % (0-2) 12/22/19 04:35 Absolute Neuts (auto) 3.6 10^3/uL (1.7-8.2) 12/22/19 04:35 Absolute Lymphs (auto) 0.8 10^3/uL (0.5-4.7) 12/22/19 04:35 Absolute Monos (auto) 0.4 10^3/uL (0.1-1.4) 12/22/19 04:35 Absolute Eos (auto) 0.0 10^3/uL (0.0-0.6) 12/22/19 04:35 Absolute Basos (auto) 0.0 10^3/uL (0.0-0.2) 12/22/19 04:35 Total Counted 100 12/20/19 07:11 Seg Neutrophils % 74.0 % (42-78) 12/22/19 04:35 Seg Neuts % (Manual) 63 % (42-78) 12/20/19 07:11 Band Neutrophils % 1 % (3-5) L 12/20/19 07:11 Lymphocytes % (Manual) 17 % (13-45) 12/20/19 07:11 Monocytes % (Manual) 19 % (3-13) H 12/20/19 07:11 Eosinophils % (Manual) 0 % (0-6) 12/20/19 07:11 Basophils % (Manual) 0 % (0-2) 12/20/19 07:11 Abs Neuts (Manual) 2.9 10^3/uL (1.7-8.2) 12/20/19 07:11 Abs Lymphs (Manual) 0.8 10^3/uL (0.5-4.7) 12/20/19 07:11 Abs Monocytes (Manual) 0.9 10^3/uL (0.1-1.4) 12/20/19 07:11 Absolute Eos (Manual) 0.0 10^3/uL (0.0-0.6) 12/20/19 07:11 Abs Basophils (Manual) 0.0 10^3/uL (0.0-0.2) 12/20/19 07:11 Clumped Platelets PRESENT 12/20/19 07:11 Platelet Comment ADEQUATE 12/20/19 07:11 RBC Morph Comment NORMO-CYTIC/CHROMIC 12/20/19 07:11 PT 13.6 SEC (11.4-15.4) 12/22/19 04:35 INR 1.02 12/22/19 04:35 APTT 35.2 SEC (23.5-35.8) 12/20/19 07:11 D-Dimer 0.34 ug/mL (0.00-0.50) 12/22/19 13:50 VBG pH 7.42 (7.30-7.42) 12/20/19 07:11 VBG pCO2 51.9 mmHg (35-63) 12/20/19 07:11 VBG HCO3 32.8 mmol/L (20-32) H 12/20/19 07:11 VBG Base Excess 6.6 mmol/L 12/20/19 07:11 Sodium 135.2 mmol/L (137-145) L 12/23/19 04:59 Potassium 4.2 mmol/L (3.6-5.0) 12/23/19 04:59 Chloride 97 mmol/L (98-107) L 12/23/19 04:59 Carbon Dioxide 29 mmol/L (22-30) 12/23/19 04:59 Anion Gap 9 (5-19) 12/23/19 04:59 BUN 23 mg/dL (7-20) H 12/23/19 04:59 Creatinine 0.78 mg/dL (0.52-1.25) 12/23/19 04:59 Est GFR ( Amer) > 60 (>60) 12/23/19 04:59 Est GFR (MDRD) Non-Af > 60 (>60) 12/23/19 04:59 Glucose 182 mg/dL (75-110) H 12/23/19 04:59 Hemoglobin A1c % 4.9 % (4.7-6.0) 12/22/19 04:35 Lactic Acid 1.3 mmol/L (0.7-2.1) 12/20/19 07:11 Calcium 8.9 mg/dL (8.4-10.2) 12/23/19 04:59 Magnesium 2.2 mg/dL (1.6-2.3) 12/23/19 04:59 Ferritin 238.00 ng/mL (17.9-464.0) 12/20/19 18:00 Total Bilirubin 0.6 mg/dL (0.2-1.3) 12/23/19 04:59 Direct Bilirubin 0.4 mg/dL (0.0-0.4) 12/23/19 04:59 Neonat Total Bilirubin Not Reportable 12/23/19 04:59 Neonat Direct Bilirubin Not Reportable 12/23/19 04:59 Neonat Indirect Bili Not Reportable 12/23/19 04:59 AST 43 U/L (17-59) 12/23/19 04:59 ALT 37 U/L (<50) 12/23/19 04:59 Alkaline Phosphatase 71 U/L (38-126) 12/23/19 04:59 Lactate Dehydrogenase 264 U/L (120-246) H 12/20/19 07:11 Troponin I < 0.012 ng/mL 12/20/19 18:00 C-Reactive Protein 85.9 mg/L (<10.0) H 12/20/19 18:00 NT-Pro-B Natriuret Pep 273 pg/mL (<125) H 12/20/19 07:11 Total Protein 6.9 g/dL (6.3-8.2) 12/23/19 04:59 Albumin 3.5 g/dL (3.5-5.0) 12/23/19 04:59 Urine Color YELLOW 12/20/19 12:01 Urine Appearance CLEAR 12/20/19 12:01 Urine pH 7.0 (5.0-9.0) 12/20/19 12:01 Ur Specific [place] 1.020 12/20/19 12:01 Urine Protein 30 mg/dL (NEGATIVE) H 12/20/19 12:01 Urine Glucose (UA) NEGATIVE mg/dL (NEGATIVE) 12/20/19 12:01 Urine Ketones NEGATIVE mg/dL (NEGATIVE) 12/20/19 12:01 Urine Blood SMALL (NEGATIVE) H 12/20/19 12:01 Urine Nitrite NEGATIVE (NEGATIVE) 12/20/19 12:01 Urine Bilirubin NEGATIVE (NEGATIVE) 12/20/19 12:01 Urine Urobilinogen 2.0 mg/dL (<2.0) H 12/20/19 12:01 Ur Leukocyte Esterase TRACE (NEGATIVE) H 12/20/19 12:01 Urine WBC (Auto) 1 /HPF 12/20/19 12:01 Urine RBC (Auto) 11 /HPF 12/20/19 12:01 U Hyaline Cast (Auto) 6 /LPF 12/20/19 12:01 Urine Mucus (Auto) RARE /LPF 12/20/19 12:01 Urine Ascorbic Acid NEGATIVE (NEGATIVE) 12/20/19 12:01 Urine Opiates Screen NEGATIVE 12/20/19 12:01 Urine Methadone Screen UNCONFIRMED POSITIVE 12/20/19 12:01 Ur Barbiturates Screen NEGATIVE 12/20/19 12:01 Ur Phencyclidine Scrn NEGATIVE 12/20/19 12:01 Ur Amphetamines Screen NEGATIVE 12/20/19 12:01 U Benzodiazepines Scrn UNCONFIRMED POSITIVE 12/20/19 12:01 Urine Cocaine Screen NEGATIVE 12/20/19 12:01 U Marijuana (THC) Screen NEGATIVE 12/20/19 12:01 COVID-19 Source See comment 12/20/19 08:02 COVID-19 (BRAVO) DETECTED (Not Detect) A 12/20/19 08:02 Influenza A (Rapid) NEGATIVE (NEGATIVE) 12/20/19 08:02 Influenza B (Rapid) NEGATIVE (NEGATIVE) 12/20/19 08:02 Group A Strep Rapid NEGATIVE (NEGATIVE) 12/20/19 08:02 Blood Type O POSITIVE 12/20/19 18:00 12/20/19 12/20/19 12/20/19 07:11 13:56 18:00 Troponin I < 0.012 < 0.012 < 0.012 NT-Pro-B Natriuret Pep 273 H Impressions: Chest X-Ray 12/20/19 07:21 IMPRESSION: Low lung volumes without other evidence of acute intrathoracic process. Chest/Abdomen CTA 12/20/19 09:49 IMPRESSION: 1. No central or segmental pulmonary embolus. 2. Multifocal mixed interstitial and airspace opacities consistent with multi lobar pneumonia. Recommend consideration for atypical organisms (to include viral) in treatment planning. 3. Chronic and incidental findings to include hydropic gallbladder with cholelithiasis, hepatic steatosis, lap band, gynecomastia. Stroke Is this a Stroke Patient?: No Acute Heart Failure Is this a Heart Failure Patient?: No
[2019-12-24 13:58] VITALS: BP 149/77
== END 2019-12-24 13:55 | disposition home or self-care (01) | DRG 177 ==
LOC: ER 06:48 → EH 15:39 → 3N 17:59
PROVIDERS: ADMIT Internal Medicine; ATTEND Internal Medicine
PROC: 5A09357 Assistance with Respiratory Ventilation, Less than 24 Consecutive Hours, Continuous Positive Airway Pressure (ICD-10-PCS; principal; 2019-12-20)
PROC: XW033E5 Introduction of Remdesivir Anti-infective into Peripheral Vein, Percutaneous Approach, New Technology Group 5 (ICD-10-PCS; 2019-12-20)
PROC: 3E02340 Introduction of Influenza Vaccine into Muscle, Percutaneous Approach (ICD-10-PCS; 2019-12-20)
PROC: XW13325 Transfusion of Convalescent Plasma (Nonautologous) into Peripheral Vein, Percutaneous Approach, New Technology Group 5 (ICD-10-PCS; 2019-12-21)
DX: U07.1 COVID-19 (principal); J96.01 Acute respiratory failure with hypoxia; J12.89 Other viral pneumonia; E87.1 Hypo-osmolality and hyponatremia; F10.20 Alcohol dependence, uncomplicated; E11.9 Type 2 diabetes mellitus without complications; E66.9 Obesity, unspecified; Z66 Do not resuscitate; E87.6 Hypokalemia; G47.33 Obstructive sleep apnea (adult) (pediatric); I10 Essential (primary) hypertension; G89.29 Other chronic pain; M54.5 Low back pain; F32.9 Major depressive disorder, single episode, unspecified; E78.5 Hyperlipidemia, unspecified; E78.00 Pure hypercholesterolemia, unspecified; Z79.891 Long term (current) use of opiate analgesic; Z79.82 Long term (current) use of aspirin; Z87.891 Personal history of nicotine dependence; Z23 Encounter for immunization
CPT/HCPCS: 36415; 36430; 71045; 71275; 80053; 80307; 81001; 82728; 82803; 83036; 83605; 83615; 83735; 83880; 84484; 85025; 85027; 85379; 85610; 85730; 86140; 86900; 86901; 87040; 87070; 87077; 87635; 87804; 87880; 90471; 90686; 93005; 93010; 94660; 94668; 94799; C9803; G0008; J0456; J1100; J1650; J2060; J3490; J7030; J7050; J7060

== ENCOUNTER 2020-01-02 10:10 | Emergency (ER) | payer MEDICARE ==
--- NOTE | 2020-01-02 10:44 | ER Document Report ---
ED Hand/Wrist Injury - General Chief Complaint: Hand Pain Stated Complaint: HAND PAIN Time Seen by Provider: 01/02/20 10:27 Primary Care Provider: SHAUNA BRYAN DO [Primary Care Provider] - Follow up as needed Notes: Patient is a 64-year-old male who presents emergency department with a chief complaint of right wrist pain. Patient denies injury. Patient states that he was admitted to the hospital and discharged 9 days ago with Covid. Patient reports he did have an IV in his right hand and that they were injected multiple medications. Patient is unsure if he has a blood clot. Patient states that after he was discharged he was changing his quite fish problem as well. Patient states that the base of the right thumb and right medial wrist is extremely tender to touch, is warm and has redness around the site. Denies deformity. TRAVEL OUTSIDE OF THE [place] IN LAST 30 DAYS: No - Related Data Allergies/Adverse Reactions: No Known Allergies Allergy (Verified 05/20/16 10:01) Past Medical History - General Information source: Patient - Social History Smoking Status: Unknown if Ever Smoked Lives with: Family Family History: CAD, DM, Malignancy - Past Medical History Cardiac Medical History: Reports: Hx Atrial Fibrillation, Hx Congestive Heart Failure, Hx Hypercholesterolemia, Hx Hypertension Pulmonary Medical History: Reports: Hx Pneumonia, Hx Sleep Apnea EENT Medical History: Reports: None Neurological Medical History: Reports: None Endocrine Medical History: Reports: Hx Diabetes Mellitus Type 2 Renal/ Medical History: Reports: None. Denies: Hx Peritoneal Dialysis Malignancy Medical History: Reports None GI Medical History: Reports: None Musculoskeletal Medical History: Reports None Skin Medical History: Reports None Psychiatric Medical History: Reports: Hx Depression Traumatic Medical History: Reports: None Infectious Medical History: Reports: None Past Surgical History: Reports: Hx Abdominal Surgery - EGD; lap band; abd hernia, Hx Orthopedic Surgery - bilat knee - Immunizations Hx Diphtheria, Pertussis, Tetanus Vaccination: Yes Review of Systems - Review of Systems Constitutional: No symptoms reported EENT: No symptoms reported Cardiovascular: No symptoms reported Respiratory: No symptoms reported Gastrointestinal: No symptoms reported Genitourinary: No symptoms reported Male Genitourinary: No symptoms reported Musculoskeletal: See HPI Skin: See HPI Hematologic/Lymphatic: No symptoms reported Neurological/Psychological: No symptoms reported Physical Exam - Vital signs Vitals: Temp Pulse Resp BP Pulse Ox 98.5 F 83 18 142/91 H 96 11/01/20 10:25 01/02/20 10:25 01/02/20 10:25 01/02/20 10:25 01/02/20 10:25 - Notes Notes: GENERAL: Well-appearing, well-nourished and in no acute distress. HEAD: Atraumatic, normocephalic. EYES: Pupils equal round and reactive to light, extraocular movements intact, sclera anicteric, conjunctiva are normal. ENT: TMs normal, nares patent, oropharynx clear without exudates. Moist mucous membranes. NECK: Normal range of motion, supple without lymphadenopathy or JVD. LUNGS: Breath sounds clear to auscultation bilaterally and equal. No wheezes rales or rhonchi. HEART: Regular rate and rhythm without murmurs, rubs or gallops. ABDOMEN: Soft, nontender, normoactive bowel sounds. No guarding, no rebound. No masses appreciated. BACK: No cervical, thoracic, lumbar midline tenderness. No saddle anesthesia, normal distal neurovascular exam. GENITOURINARY: Deferred. EXTREMITIES: Right hand; tenderness to the base of the right thumb, erythema noted that streaks up into right medial wrist, + 2 radial pulse, < 2 sec cap refill on all digits. Extremely tender around areas of erythema. No bruising or hematoma noted. NEUROLOGICAL: Cranial nerves II through XII grossly intact. Normal speech, normal gait. PSYCH: Normal mood, normal affect. SKIN: Warm, Dry, normal turgor, no rashes or lesions noted. Course - Re-evaluation Re-evalutation: 01/02/20 10:41 We will order a venous Doppler to rule out clot as the patient was admitted to the hospital and states he had an IV in his right lower arm. Differentials include possible gout as the patient does eat a lot of red meat as well as recent alcohol use/cellulitis as the patient did have an IV and was discharged from the hospital and was cleaning out a dirty [place] fish pond. 01/02/20 15:52 Venous Doppler was negative. We will treat the patient with anti-inflammatories as well as antibiotics for possible cellulitis. Patient was updated on plan of care and denies questions. Patient states that his right wrist and arm pain is actually improved since being here in the emergency department. Erythema is still noted but has not gotten worse. - Vital Signs Vital signs: Temp Pulse Resp BP Pulse Ox 98.5 F 83 18 142/91 H 96 01/02/20 10:25 01/02/20 10:25 01/02/20 10:25 01/02/20 10:25 01/02/20 10:25 - Diagnostic Test Radiology reviewed: Reports reviewed Radiology results interpreted by me: 01/02/20 15:52 Venous Doppler Study 01/02/20 10:39 IMPRESSION: NO EVIDENCE DVT OR SVT IN THE RIGHT ARM. Discharge - Discharge Clinical Impression: Right hand pain Cellulitis Qualifiers: Site of cellulitis: extremity Site of cellulitis of extremity: upper extremity Laterality: right Qualified Code(s): L03.113 - Cellulitis of right upper limb Condition: Stable Disposition: HOME, SELF-CARE Additional Instructions: *Today are seen the emergency department for right hand pain. I'm going to treat you for possible developing cellulitis with Keflex. You were given your first dose here in the emergency department. Please take this for its full course. Please take the anti-inflammatory twice a day for the next week. The anti- inflammatories to help with the discomfort and inflammation. Please make sure that you do take this with food. Cellulitis You have an infection of your skin and underlying soft tissues called cellulitis. This is due to bacteria, which can enter through any break in the skin, or even through an irritated hair follicle. Untreated, cellulitis will usually worsen. Antibiotics are required. Usually, warm packs or warm soaks, and elevation of the infected area are recommended. You should start getting better within 24 to 36 hours. Most infections respond quickly to the right medication. Follow-up care is important, however, to check for abscess (boil) formation, unsuspected foreign body, or resistant infection. If you develop fever, chills, or if the area of infection is becoming rapidly more swollen or painful, call the doctor at once. Gout You have been diagnosed as having gout. Gout is a problem caused by an excess of uric acid, a natural chemical found in the body. The cause of this disease is unknown. Gout arthritis occurs when crystals of uric acid form in the joints. The big toe is the most common joint involved, but any joint can become affected. Persons with gout may also form uric acid kidney stones, resulting in flank pain and blood in the urine. Nodules of uric acid may form under the skin. The first step of treatment is to decrease the inflammation in the joint with antiinflammatory medication. Medication to lower the uric acid level in the blood may then be prescribed. This medication should be taken regularly, as any sudden change in dosage may provoke an attack of gout. Some foods, such as red meat, can provoke an attack in some gout sufferers. Call the doctor if new symptoms arise, or if you do not improve. Gout Diet Changing your diet can decrease the uric acid in your blood. High levels of uric acid cause gouty arthritis and uric acid kidney stones. If you have gout, you should avoid meats that are high in purine. Meat products to avoid include liver, kidneys, and brains. In general, poultry is better than red meats. Seafoods to avoid include anchovies, sardines, gilbert, mackerel, and scallops. In addition to limiting purine-rich foods, people with gout should limit protein intake to 10-15% of total calories. Carbohydrate intake should be around 50% of total daily calories. Limit fat intake to 30% of total daily calories. Cholesterol intake should be less than 300 mg/day. Maintain or achieve a healthy body weight. Weight loss should be gradual. Rapid weight loss can actually increase uric acid levels temporarily. Alcohol, especially beer, should be avoided. Get plenty of fluids. This dilutes urinary uric acid, and helps prevent uric acid kidney stones. Drink eight to twelve cups of water daily. Prescriptions: Cephalexin Monohydrate [Keflex 500 mg Capsule] 500 mg PO Q6H 5 Days capsule Naproxen 500 mg PO BID PRN #14 tablet PRN Reason: Referrals: SHAUNA BRYAN DO [Primary Care Provider] - Follow up as needed
[2020-01-02] MEDS ORDERED: CEPHALEXIN 500 MG CAPSULE PO ONE (15:40)
[2020-01-02] MEDS ORDERED: NAPROXEN 250 MG TABLET PO ONE (15:41)
--- NOTE | 2020-01-02 15:41 | RADIOLOGY REPORT (SQ) ---
EXAM DESCRIPTION: VENOUS UNILATERAL UPPER IMAGES COMPLETED DATE/TIME: 01/02/2020 3:28 pm REASON FOR STUDY: Right wrist pain, recent IV COMPARISON: None. TECHNIQUE: Dynamic and static bernard scale and color images acquired of the right arm venous system. S elected spectral images acquired with additional compression and augmentation maneuvers. Images stor ed on PACS. LIMITATIONS: None. FINDINGS: INTERNAL JUGULAR VEIN: Normal phasicity, compression, augmentation. No visualized echogeni c material on bernard scale. No defects on color images. Comparison opposite side normal. SUBCLAVIAN VEIN: Normal compression, augmentation. No visualized echogenic material on bernard scale. No defects on color images. AXILLARY VEIN: Normal compression, augmentation. No visualized echogenic material on bernard scale. No d efects on color images. BRACHIAL VEIN: Normal compression, augmentation. No visualized echogenic material on bernard scale. No d efects on color images. BASILIC VEIN: Normal compression, augmentation. No visualized echogenic material on bernrad scale. No de fects on color images. CEPHALIC VEIN: Normal compression, augmentation. No visualized echogenic material on bernard scale. No d efects on color images. OTHER: No other significant finding. CONTRALATERAL SUBCLAVIAN VEIN AND INTERNAL JUGULAR VEIN: Not imaged. IMPRESSION: NO EVIDENCE DVT OR SVT IN THE RIGHT ARM. TECHNICAL DOCUMENTATION: JOB ID: [id number] 2010 [employer]- All Rights Reserved Reading location - IP/workstation name: [email or web address]
[2020-01-02 15:58] VITALS: BP 148/93
== END 2020-01-02 16:01 | disposition home or self-care (01) ==
LOC: ER 10:10
DX: L03.113 Cellulitis of right upper limb (principal); M79.641 Pain in right hand; I48.91 Unspecified atrial fibrillation; I50.9 Heart failure, unspecified; E78.00 Pure hypercholesterolemia, unspecified; I11.0 Hypertensive heart disease with heart failure
CPT/HCPCS: 99284; 93971; A9270 ×2

== ENCOUNTER 2020-03-16 05:34 | Day surgery (SDC) | payer MEDICARE ==
--- NOTE | 2020-03-13 10:32 | RADIOLOGY REPORT (SQ) ---
EXAM DESCRIPTION: CHEST 2 VIEWS IMAGES COMPLETED DATE/TIME: 03/13/2020 10:17 am REASON FOR STUDY: PRO OP TESTING COMPARISON: CT of the chest from 12/20/2019. EXAM PARAMETERS: NUMBER OF VIEWS: Two views. TECHNIQUE: PA and lateral views of the chest were obtained. RADIATION DOSE: NA LIMITATIONS: None. FINDINGS: LUNGS AND PLEURA: Low inspiratory lung volumes without a superimposed consolidation, pleur al effusion or pneumothorax. MEDIASTINUM AND HILAR STRUCTURES: No mediastinal or hilar contour abnormality. HEART AND VASCULAR STRUCTURES: The cardiac silhouette and pulmonary vasculature are within normal helms its. BONES: No acute findings. HARDWARE: Adjustable gastric band. OTHER: No other finding. IMPRESSION: Low inspiratory lung volumes without a superimposed acute cardiopulmonary process. TECHNICAL DOCUMENTATION: JOB ID: [id number] [employer]- All Rights Reserved Reading location - IP/workstation name: [email or web address]
[2020-03-13 10:51] LABS: ABSOLUTE BASOPHILS # (AUTO) 0.1 10^3/uL (0.0-0.2); ABSOLUTE EOSINOPHILS # (AUTO) 0.2 10^3/uL (0.0-0.6); ABSOLUTE LYMPHOCYTES (AUTO) 1.3 10^3/uL (0.5-4.7); ABSOLUTE MONOCYTES (AUTO) 0.6 10^3/uL (0.1-1.4); ABSOLUTE NEUT (AUTO) 4.5 10^3/uL (1.7-8.2); EOSINOPHILS % (AUTO) 2.9 % (0-6); HEMATOCRIT 45.2 % (37.9-51.0); HEMOGLOBIN 15.8 g/dL (13.5-17.0); LYMPHOCYTES % (AUTO) 18.9 % (13-45); MEAN CORPUSCULAR HEMOGLOBIN 33.7 pg (27.0-33.4); MEAN CORPUSCULAR HGB CONC 34.9 g/dL (32.0-36.0); MEAN CORPUSCULAR VOLUME 96 fl (80-97); MONOCYTES % (AUTO) 9.6 % (3-13); PLATELET COUNT 186 10^3/uL (150-450); SEGMENTED NEUTROPHILS % (AUTO) 67.6 % (42-78); TOTAL CELLS COUNTED % (AUTO) 100 %; WHITE BLOOD COUNT 6.7 10^3/uL (4.0-10.5)
[2020-03-13 11:00] LABS: ANION GAP 9 (5-19); BLOOD UREA NITROGEN 13 mg/dL (7-20); CARBON DIOXIDE 34 mmol/L (22-30); CHLORIDE 93 mmol/L (98-107); GLUCOSE 117 mg/dL (75-110); POTASSIUM 3.7 mmol/L (3.6-5.0)
--- NOTE | 2020-03-13 18:13 | EKG REPORT ---
SEVERITY:- DEFECTIVE ECG - BASELINE ARTIFACT PROBABLE SINUS RHYTHM NONSPECIFIC INTRAVENTRICULAR CONDUCTION DELAY : Confirmed by: Annalise Dunne MD 13-Mar-2020 18:13:31
[~2020-03-16 05:34] MED LIST: CEFAZOLIN 2 GM/D5W RTU 2 GM/50 ML RTUPB IV ONE; CEFAZOLIN 2 GM/D5W RTU 2 GM/50 ML RTUPB IV PRN; LACTATED RINGERS 1000 ML IV PRN; METRONIDAZOLE 500 MG/NS RTU 500 MG/100 ML RTUPB IV ONE; METRONIDAZOLE 500 MG/NS RTU 500 MG/100 ML RTUPB IV PRN
[2020-03-16] MEDS ORDERED: LIDOCAINE 2% INJ (20 MG/ML) 20 ML MDV ONE (06:50)
[2020-03-16] MEDS ORDERED: PROPOFOL INJ 200 MG/20 ML VIAL IV ONE (06:51)
[2020-03-16] MEDS ORDERED: MIDAZOLAM 2 MG/2 ML INJ ONE (06:51)
[2020-03-16] MEDS ORDERED: FENTANYL CITRATE INJ/PF 100 MCG/2 ML AMPUL ONE ×2 (06:51→07:06)
[2020-03-16] MEDS ORDERED: BUPIVACAINE INJ/PF LIPOSOME/PF 266 MG/20 ML SDV ONE (07:07)
[2020-03-16] MEDS ORDERED: EPHEDRINE SULFATE INJ 50 MG/1 ML AMPULE ONE (07:44)
[2020-03-16] MEDS ORDERED: DIPHENHYDRAMINE HCL 50 MG/ML VIAL IV PRN (07:47)
[2020-03-16] MEDS ORDERED: FENTANYL CITRATE INJ/PF 100 MCG/2 ML AMPUL IV PRN ×3 (07:47)
[2020-03-16] MEDS ORDERED: ONDANSETRON HCL INJ/PF 4 MG/2 ML SDV IV PRN (07:47)
[2020-03-16] MEDS ORDERED: MORPHINE SULFATE 10 MG/ML INJ IV PRN (07:47)
[2020-03-16] MEDS ORDERED: MEPERIDINE HCL/PF INJ 25 MG/1 ML DISP.SYRIN IV PRN (07:47)
[2020-03-16] MEDS ORDERED: HYDROMORPHONE HCL INJ/PF 2 MG/ML AMPULE ONE (09:07)
--- NOTE | 2020-03-16 09:16 | Operative Report ---
Nonrecallable Operative Report DATE OF SURGERY: 03/16/20 PREOPERATIVE DIAGNOSIS: presence of gastric band and symptomatic cholelithiasis POSTOPERATIVE DIAGNOSIS: same OPERATION: removal of laproscopic gastric band and cholecystectomy SURGEON: DAVID HOOKER COMMERCIAL REPRESENTATIVE: QUYEN PIMENTEL ANESTHESIA: GA TISSUE REMOVED OR ALTERED: lap band and gallbladder COMPLICATIONS: none ESTIMATED BLOOD LOSS: 50cc INTRAOPERATIVE FINDINGS: see note PROCEDURE: Patient was brought to the operating awake alert stable condition placed on the operating table supine position induced under general anesthesia intubated. After appropriate timeout and site verification the procedure commenced. A varies needle was placed into the umbilicus and the abdomen was insufflated with 6 L of CO2 gas then over the left upper quadrant where the previous port was palpated a transverse incision was made in the old scar. Dissection was carried down through subcutaneous tissue with Bovie cautery to we identified the port was dissected free from the surrounding tissue all 3 Prolene sutures holding to the anterior abdominal fascia were removed. The port was then detached from the catheter. Through that incision we placed a 10 mm working trocar. We then placed 2 lateral 5 mm ports under direct vision and a supraumbilical 10 mm port for the camera. We traced the LAP-BAND catheter to the LAP-BAND around the stomach and dissected the pseudocapsule around the LAP- BAND itself where we were able to then retract the LAP-BAND unbuckled and remove it from the esophagus. We remove that through the left upper quadrant 10 mm port site. We then replaced the working trocar and utilized this for the gallbladder. The gallbladder was then placed on traction the paraduodenal ligament was dissected with blunt dissection identified the cystic duct and cystic artery both these structures were doubly ligated and then divided. The gallbladder was dissected out of the liver bed with Bovie cautery placed in an Endobag and removed through the left upper quadrant port site. Irrigation then ensued the right upper quadrant was irrigated normal saline suctioned dry hemostasis noted to be intact the pneumoperitoneum was then reduced the fascial defects were closed with 0 Vicryl and the skin was closed with intracuticular 4 oh bison Steri-Strips completed the procedure. Estimated blood loss was less than 25 cc sponge needle counts were correct x2 the patient was then awakened in the operating extubated transferred recovery in stable condition no complications. MARQUIS Avery was present for the entire procedure for help with wound retraction wound closure
[2020-03-16] MEDS ORDERED: ACETAMINOPHEN 1,000 MG/100 ML RTUPB IV ONE (09:18)
[2020-03-16] MEDS ORDERED: KETOROLAC TROMETHAMINE 60 MG/2 ML SDV ONE (09:22)
--- NOTE | 2020-03-16 09:25 | Discharge Summary ---
Discharge Summary (SDC) - Discharge Final Diagnosis: Cholelithiasis and presence of lap band Date of Surgery: 03/16/20 Discharge Date: 03/16/20 Condition: Good Prescriptions: Hydrocodone/Acetaminophen [Hettinger 10-325 mg Tablet] 1 tab PO Q6HP PRN #10 tablet PRN Reason: Referrals: SHAUNA BRYAN DO [Primary Care Provider] - Discharge Diet: As Tolerated Discharge Activity: No Lifting Over 10 Pounds Report the Following to Your Physician Immediately: Shortness of Breath, Vomiting, Unusual Bleeding - Patient needs a follow-up appointment 10 to 14 days in my office
[2020-03-16] MEDS ORDERED: IPRATROPIUM/ALBUTEROL 0.5-2.5 MG/3 ML AMPUL NEB ONE (09:56)
[2020-03-16] MEDS ORDERED: SUCCINYLCHOLINE CHLORIDE INJ 200 MG/10 ML VIAL ONE (10:44)
[2020-03-16] MEDS ORDERED: ONDANSETRON HCL INJ/PF 4 MG/2 ML SDV ONE (10:44)
[2020-03-16] MEDS ORDERED: DEXAMETHASONE SOD PHOSPHATE INJ 4 MG/1 ML VIAL ONE (10:44)
[2020-03-16] MEDS ORDERED: GLYCOPYRROLATE 1 MG/5 ML VIAL ONE (10:44)
[2020-03-16] MEDS ORDERED: NEOSTIGMINE METHYLSULFATE 10 MG/10 ML VIAL ONE (10:44)
[2020-03-16] MEDS ORDERED: ROCURONIUM BROMIDE INJ 50 MG/5 ML VIAL IV ONE (10:44)
[2020-03-16] MEDS ORDERED: ALBUTEROL SULFATE HFA (90 MCG/PUFF) 8 GM MDI IH ONE (10:44)
[2020-03-16] MEDS ORDERED: HYDROCODONE/ACETAMINOPHEN 10-325 MG TABLET ONE (11:03)
[2020-03-16 12:07] VITALS: BP 103/58
== END 2020-03-16 12:05 | disposition home or self-care (01) ==
LOC: OROUT 05:34
PROVIDERS: ATTEND Surgery
DX: K80.10 Calculus of gallbladder with chronic cholecystitis without obstruction (principal); Z46.51 Encounter for fitting and adjustment of gastric lap band; Z01.812 Encounter for preprocedural laboratory examination; Z20.822 Contact with and (suspected) exposure to COVID-19; G47.33 Obstructive sleep apnea (adult) (pediatric); K82.1 Hydrops of gallbladder; I10 Essential (primary) hypertension; E66.9 Obesity, unspecified; F90.9 Attention-deficit hyperactivity disorder, unspecified type; Z86.19 Personal history of other infectious and parasitic diseases; Z86.16 Personal history of COVID-19; Z80.0 Family history of malignant neoplasm of digestive organs; Z79.899 Other long term (current) drug therapy; Z79.891 Long term (current) use of opiate analgesic
CPT/HCPCS: 47562; 43774; 93005; 36415 ×2; 84132; 85025; 80048; 88300 ×2; 88304 ×2; 71046; 93010; U0003; J2250; J3490 ×5; J1100; J1885; J3010; J2710; J1170; J0330; J2405; J2704; J0690; J0131; C9290; A9270 ×2; C9803; 790; 87635